=== PATIENT | female | born 1985 | race Caucasian/White ===

== ENCOUNTER 2016-02-20 10:50 | Outpatient (CLI) | payer MEDICAID ==
[~2016-02-20 10:50] MED LIST: NORMAL SALINE 250 ML IV PRN; NORMAL SALINE IV PRN; PERTUZUMAB 420 MG in NORMAL SALINE 250 ML IV PRN; TRASTUZUMAB IV PRN
[2016-02-20 11:22] VITALS: BP 110/73
== END 2016-02-20 13:12 | disposition home or self-care (01) ==
LOC: II 10:50 → 5TH 10:51 → II 13:12
PROVIDERS: ATTEND Specialist
PROC: 3E0430M Introduction of Antineoplastic, Monoclonal Antibody, into Central Vein, Percutaneous Approach (ICD-10-PCS; principal; 2016-02-20)
DX: Z51.11 Encounter for antineoplastic chemotherapy (principal); C50.919 Malignant neoplasm of unspecified site of unspecified female breast
CPT/HCPCS: 96413; 96417; J9355; J7050; J9306; 96360; 96374; 96415

== ENCOUNTER 2016-03-12 10:46 | Outpatient (CLI) | payer MEDICAID ==
[2016-03-12 11:01] VITALS: BP 116/71
[2016-03-12] MEDS ORDERED: NORMAL SALINE 250 ML IV PRN (11:03)
[2016-03-12] MEDS ORDERED: TRASTUZUMAB IV PRN (11:12)
[2016-03-12] MEDS ORDERED: NORMAL SALINE IV PRN (11:12)
[2016-03-12] MEDS ORDERED: PERTUZUMAB 420 MG in NORMAL SALINE 250 ML IV PRN (11:14)
== END 2016-03-12 14:19 | disposition home or self-care (01) ==
LOC: II 10:46 → 5TH 10:48 → II 14:19
PROVIDERS: ATTEND Specialist
PROC: 3E04305 Introduction of Other Antineoplastic into Central Vein, Percutaneous Approach (ICD-10-PCS; principal; 2016-03-12)
PROC: 3E04305 Introduction of Other Antineoplastic into Central Vein, Percutaneous Approach (ICD-10-PCS; 2016-03-12)
PROC: 3E0437Z Introduction of Electrolytic and Water Balance Substance into Central Vein, Percutaneous Approach (ICD-10-PCS; 2016-03-12)
DX: C50.919 Malignant neoplasm of unspecified site of unspecified female breast (principal); Z51.11 Encounter for antineoplastic chemotherapy
CPT/HCPCS: 96413; 96361; 96417; J9355; J7050; J9306; 96360; 96374; 96415

== ENCOUNTER 2016-04-02 10:34 | Outpatient (CLI) | payer MEDICAID ==
[2016-04-02 11:41] VITALS: BP 96/57
== END 2016-04-02 13:57 | disposition home or self-care (01) ==
LOC: II 10:34 → 5TH 10:35 → II 13:57
PROVIDERS: ATTEND Specialist
PROC: 3E0430M Introduction of Antineoplastic, Monoclonal Antibody, into Central Vein, Percutaneous Approach (ICD-10-PCS; principal; 2016-04-02)
PROC: 3E04305 Introduction of Other Antineoplastic into Central Vein, Percutaneous Approach (ICD-10-PCS; 2016-04-02)
PROC: 3E0437Z Introduction of Electrolytic and Water Balance Substance into Central Vein, Percutaneous Approach (ICD-10-PCS; 2016-04-02)
DX: C50.919 Malignant neoplasm of unspecified site of unspecified female breast (principal); Z51.11 Encounter for antineoplastic chemotherapy
CPT/HCPCS: 96413; 96361; 96417; J9355; J7050; J9306; 96375

== ENCOUNTER → 2016-04-07 | Outpatient (CLI) | payer MEDICAID ==
--- NOTE | 2016-04-07 20:47 | XCELERA REPORT ---
[address] [address] Transthoracic Echocardiogram Report Name: ROSE SANZ Age: 30 yrs Gender: Female : 1985 Patient Status: Outpatient Patient Location: Study Date: 04/07/2016 03:41 PM Height: 66 in Weight: 208 lb BSA: 2.0 m2 Reason For Study: ANTHRACYCLINE Z51.11 Ordering Physician: JUDITH COURTNEY Performed By: Nacho Whipple Interpretation Summary Difficult study due to L mastectomy and breast implant. Apical view poor and not all LV segments visualised to estimate LVEF, visually probably <60%, due to some segments hypokinetic eg IVS, inferoseptal wall, and basal LV segments not well visualised. Recommend rest MUGA study for serial quantification. MMode/2D Measurements \T\ Calculations RVDd: 3.0 cm LVIDd: 4.6 cm FS: 27.0 % Ao root diam: 3.3 cm IVSd: 0.77 cm LVIDs: 3.4 cm EDV(Teich): 98.0 ml LVPWd: 0.73 cm ESV(Teich): 46.4 ml Ao root area: 8.6 cm2 EF(Teich): 52.7 % LA dimension: 3.4 cm Doppler Measurements \T\ Calculations MV E max hilario: MV P1/2t max hilario: Ao V2 max: LV V1 max P.8 cm/sec 82.1 cm/sec 94.6 cm/sec 2.6 mmHg MV A max hilario: MV P1/2t: 50.0 msec Ao max PG: LV V1 max: 52.4 cm/sec 3.6 mmHg 81.0 cm/sec MV E/A: 1.6 MVA(P1/2t): 4.4 cm2 MV dec slope: 481.4 cm/sec2 MV dec time: 0.18 sec PA V2 max: TR max hilario: RAP systole: 87.7 cm/sec 186.5 cm/sec 10.0 mmHg PA max PG: TR max P.0 mmHg 3.1 mmHg RVSP(TR): 24.0 mmHg Left Ventricle The left ventricle is grossly normal size. The left ventricular ejection fraction is normal. LV EF is 60%. Doppler measurements suggest normal left ventricular diastolic function. There is inferoseptal wall moderate hypokinesis. There is no thrombus. Right Ventricle The right ventricle is not well visualized secondary to technical limitations. The right ventricular systolic function is normal. Atria The right atrium is normal in size. The left atrial size is normal. The interatrial septum is intact with no evidence for an atrial septal defect. Mitral Valve The mitral valve is normal in structure and function. There is no mitral annular calcification. There is no evidence of mitral valve prolapse. There is no mitral valve stenosis. There is no mitral regurgitation noted. Aortic Valve The aortic valve opens well. The aortic valve is not well visualized secondary to technical limitations. Cannot exclude aortic valvular vegetation. There is no aortic valve stenosis. No aortic regurgitation is present. Tricuspid Valve The tricuspid valve is not well visualized secondary to technical limitations. There is no tricuspid stenosis. Right ventricular systolic pressure is normal. Pulmonic Valve The pulmonic valve is not well visualized. There is no pulmonic valvular regurgitation. Great Vessels The aortic root is normal size. Effusions There is no pericardial effusion. I WMSI = 1.36 % Normal = 64 Segments Size X - Cannot 1 - Normal 2 - 3 - Akinetic4 - 1-2 small Interpret Hypokinetic Dyskinetic 3-5 moderate 5 - 6-14 large Aneurysmal 15-16 diffuse : JUDITH COURTNEY > Danyelle, Luis Miguel
== END ==
LOC: SP 15:15
PROVIDERS: ATTEND Specialist
DX: Z51.11 Encounter for antineoplastic chemotherapy (principal); Z85.3 Personal history of malignant neoplasm of breast; Z79.899 Other long term (current) drug therapy
CPT/HCPCS: 93306

== ENCOUNTER → 2016-04-09 | Outpatient (CLI) | payer MEDICAID | LOC: RAD 12:51 | PROVIDERS: ATTEND Specialist | DX: C50.919 Malignant neoplasm of unspecified site of unspecified female breast (principal) | CPT/HCPCS: 70460 ==

== ENCOUNTER 2016-04-30 11:56 | Outpatient (CLI) | payer SELFPAY ==
[2016-04-30 13:53] VITALS: BP 113/78
== END 2016-04-30 14:24 | disposition home or self-care (01) ==
LOC: II 11:56 → 5TH 11:58 → II 14:24
PROVIDERS: ATTEND Specialist
DX: Z51.11 Encounter for antineoplastic chemotherapy (principal); C50.919 Malignant neoplasm of unspecified site of unspecified female breast
CPT/HCPCS: 96413; 96361; 96417; J9355; J7050; J9306; 96360; 96415

== ENCOUNTER 2016-05-21 11:47 | Outpatient (CLI) | payer SELFPAY ==
[2016-05-21 13:07] VITALS: BP 107/73
== END 2016-05-21 15:30 | disposition home or self-care (01) ==
LOC: II 11:47 → 5TH 11:50 → II 15:30
PROVIDERS: ATTEND Internal Medicine
PROC: 3E0330M Introduction of Antineoplastic, Monoclonal Antibody, into Peripheral Vein, Percutaneous Approach (ICD-10-PCS; principal; 2016-05-21)
PROC: 3E0337Z Introduction of Electrolytic and Water Balance Substance into Peripheral Vein, Percutaneous Approach (ICD-10-PCS; 2016-05-21)
DX: C50.919 Malignant neoplasm of unspecified site of unspecified female breast (principal); Z51.11 Encounter for antineoplastic chemotherapy
CPT/HCPCS: 96413; 96361; J9355; J7050; J9306; 96375; 96415

== ENCOUNTER 2016-06-11 10:37 | Outpatient (CLI) | payer MEDICAID ==
[2016-06-11 11:03] VITALS: BP 106/75
[2016-06-11 11:13] LABS: ABSOLUTE EOSINOPHILS # (AUTO) 0.2 10^3/uL (0.0-0.6); ABSOLUTE LYMPHOCYTES (AUTO) 0.6 10^3/uL (0.5-4.7); ABSOLUTE MONOCYTES (AUTO) 0.4 10^3/uL (0.1-1.4); ABSOLUTE NEUT (AUTO) 3.2 10^3/uL (1.7-8.2); BASOPHILS % (AUTO) 0.9 % (0-2); EOSINOPHILS % (AUTO) 5.3 % (0-6); HEMATOCRIT 36.6 % (36.0-47.0); HEMOGLOBIN 12.2 g/dL (12.0-15.5); LYMPHOCYTES % (AUTO) 14.5 % (13-45); MEAN CORPUSCULAR HEMOGLOBIN 31.6 pg (27.0-33.4); MEAN CORPUSCULAR HGB CONC 33.4 g/dL (32.0-36.0); MEAN CORPUSCULAR VOLUME 95 fl (80-97); RED BLOOD COUNT 3.87 10^6/uL (3.72-5.28); RED CELL DISTRIBUTION WIDTH 13.3 % (11.5-14.0); SEGMENTED NEUTROPHILS % (AUTO) 71.3 % (42-78); WHITE BLOOD COUNT 4.5 10^3/uL (4.0-10.5)
== END 2016-06-11 13:00 | disposition home or self-care (01) ==
LOC: II 10:37 → 5TH 10:40 → II 13:00
PROVIDERS: ATTEND Specialist
PROC: 3E0430M Introduction of Antineoplastic, Monoclonal Antibody, into Central Vein, Percutaneous Approach (ICD-10-PCS; principal; 2016-06-11)
DX: Z51.11 Encounter for antineoplastic chemotherapy (principal); C50.919 Malignant neoplasm of unspecified site of unspecified female breast
CPT/HCPCS: 96413; 96415; 96376; 36415; 85025; J9355; J7050; J9306; 96417

== ENCOUNTER → 2016-06-14 | Outpatient (CLI) | payer SELFPAY | LOC: RAD 19:09 | PROVIDERS: ATTEND Specialist | DX: C50.919 Malignant neoplasm of unspecified site of unspecified female breast (principal) | CPT/HCPCS: 78815; A9552 ==

== ENCOUNTER → 2017-04-12 | Outpatient (CLI) | payer SELFPAY ==
--- NOTE | 2017-04-13 09:04 | RADIOLOGY REPORT (SQ) ---
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 TECHNIQUE: Left shoulder images acquired and stored on PACS. Multiplanar imaging to include fat sens itive sequences such as T1, water sensitive sequences such as FST2/STIR, cartilage sensitive sequence s such as FSPD/gradient-echo sequences. LIMITATIONS: None. FINDINGS: BONE MARROW AND CORTEX: No worrisome bone lesions or marrow replacement. No occult fractur es. JOINT OR BURSAL EFFUSION: No significant joint or bursal fluid. No suggestion of loose bodies. GLENO-HUMERAL ARTICULATION: Normal articulation. No subluxation. No cystic change. No osteophytes or cartilage loss. ACROMION AND AC JOINT: Type 2. No down-sloping or distal spur. Sub-acromial space maintained. No si gnificant AC joint arthropathy. ROTATOR CUFF AND INTERVAL: No significant tear or signal alteration. No cuff muscle atrophy. No rotator interval tear. No rotator interval thickening to suggest adhesive capsulitis. LABRUM AND BICEPS LABRAL COMPLEX: Intact. No labral tear. Intra-articular long-head biceps tendon n ormal. Distal biceps in normal location in bicipital groove. REMAINDER OF LABRUM AND IGHL : No gross tear or paralabral cyst formation. Labral evaluation is less than optimal without joint distention. No thickening of IGHL to suggest adhesive capsulitis. PERIARTICULAR AND ADJACENT SOFT TISSUES: No masses or abnormal nodes. OTHER: No other significant finding. IMPRESSION: NORMAL MRI OF THE SHOULDER. TECHNICAL DOCUMENTATION: JOB ID: [id number] [employer]- All Rights Reserved Reading location - IP/workstation name: [email or web address]
--- NOTE | 2017-04-13 13:03 | RADIOLOGY REPORT (SQ) ---
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 TECHNIQUE: Sagittal and Axial imaging includes T1, T2, STIR and gradient echo sequences. T1 post pierre olinium sequences. CONTRAST TYPE AND DOSE: 20 mL Multihance. RENAL FUNCTION: None required. The patient is less than 50 years old. LIMITATIONS: None. FINDINGS: ALIGNMENT: Normal. VERTEBRAE: Intact. BONE MARROW: Normal. No marrow replacement or reactive changes. DISCS: Desiccation multiple levels. HARDWARE: None in the spine. CORD AND BASE OF BRAIN: Normal in size and signal intensity. SOFT TISSUES: No soft tissue masses. C1-C2: No significant spinal stenosis. C2-C3: No significant spinal stenosis or exit foraminal stenosis. C3-C4: No significant spinal stenosis or exit foraminal stenosis. C4-C5: No significant spinal stenosis or exit foraminal stenosis. C5-C6: No significant spinal stenosis or exit foraminal stenosis. C6-C7: No significant spinal stenosis or exit foraminal stenosis. C7-T1: No significant spinal stenosis or exit foraminal stenosis. UPPER THORACIC: Incompletely imaged. No significant spinal stenosis or exit foraminal stenosis. ENHANCEMENT: No abnormal enhancement. OTHER: No other significant finding. IMPRESSION: No acute findings. COMMENT: None. TECHNICAL DOCUMENTATION: JOB ID: [id number] [employer]- All Rights Reserved Reading location - IP/workstation name: [facility]
== END ==
LOC: RAD 16:27
PROVIDERS: ATTEND Internal Medicine Hematology & Oncology
DX: G64 Other disorders of peripheral nervous system (principal); C50.919 Malignant neoplasm of unspecified site of unspecified female breast; M25.60 Stiffness of unspecified joint, not elsewhere classified
CPT/HCPCS: 73221; 72156; A9577

== ENCOUNTER → 2017-06-10 | Outpatient (CLI) | payer SELFPAY ==
--- NOTE | 2017-06-10 15:23 | RADIOLOGY REPORT (SQ) ---
EXAM DESCRIPTION: CT ABD/PELVIS WITH IV ONLY; CT CHEST WITH COMPLETED DATE/TIME: 06/10/2017 2:40 pm REASON FOR STUDY: BREAST CA (C50.919) C50.919 MALIGNANT NEOPLASM OF UNSP SITE OF UNSPECIFIED FEMAL COMPARISON: PET-CT 06/14/2016, 05/26/2015 CONTRAST TYPE AND DOSE: contrast/concentration: Isovue 370.00 mg/ml; Total Contrast Delivered: 100.0 ml; Total Saline Delivered: 72.0 ml RENAL FUNCTION: None required. The patient is less than 50 years old. TECHNIQUE: CT scan of the chest performed using helical scanning technique with dynamic intravenous contrast injection. Images reviewed with lung, soft tissue and bone windows. Reconstructed coronal a nd sagittal MPR images reviewed. All images stored on PACS. CT scan of the abdomen and pelvis performed with intravenous and without oral contrastusing helical s kim technique with dynamic intravenous contrast injection. Images reviewed with lung, soft tissu e and bone windows. Reconstructed coronal and sagittal MPR images reviewed. Delayed images for eval uation of the urinary system also acquired and evaluated. All images stored on PACS. All CT scanners at this facility use dose modulation, iterative reconstruction, and/or weight based d osing when appropriate to reduce radiation dose to as low as reasonably achievable (ALARA). [facility]: Dose Right [facility]: CareDose [facility]: Dose Right [facility]: Teradose 4D [facility]: Smart Technologies RADIATION DOSE: CT Rad equipment meets quality standard of care and radiation dose reduction techniq ues were employed. CTDIvol: 9.6 - 18.0 mGy. DLP: 2362 mGy-cm. . LIMITATIONS: None. FINDINGS: CHEST: LUNGS AND PLEURA: No opacities, nodules, masses. No pneumothorax. No effusions. HILAR AND MEDIASTINAL STRUCTURES: No identified masses or abnormal nodes. HEART AND VASCULAR STRUCTURES: No aneurysm or dissection. No central pulmonary emboli. No pericardi al effusion. HARDWARE: None. THYROID AND OTHER SOFT TISSUES: Post left skin sparing mastectomy and breast implant. BONES: No significant finding. OTHER: No other significant finding. ABDOMEN AND PELVIS: LIVER: Normal size. No masses. No dilated ducts. SPLEEN: Normal size. No focal lesions. PANCREAS: No masses. No significant calcifications. No adjacent inflammation or peripancreatic fluid collections. Pancreatic duct not dilated. GALLBLADDER: No identified stones by CT criteria. No inflammatory changes to suggest cholecystitis. ADRENAL GLANDS: No significant masses or asymmetry. RIGHT KIDNEY AND URETER: No solid masses. No significant calcification. No hydronephrosis or hydroure ter. LEFT KIDNEY AND URETER: No solid masses. No significant calcification. No hydronephrosis or hydrouret er. AORTA AND VESSELS: No aneurysm. No dissection. Renal arteries, SMA, celiac without stenosis. RETROPERITONEUM: No retroperitoneal adenopathy, hemorrhage or masses. BOWEL AND PERITONEAL CAVITY: No masses or inflammatory changes. No free fluid or peritoneal masses. APPENDIX: Normal. ABDOMINAL WALL: No masses. No hernias. PELVIS: No mass or free fluid. Normal bladder. Normal size uterus and ovaries. 3 cm right ovarian cyst. BONES: 1.8 cm sclerotic lesion in the left sacrum axial image 60. This is unchanged compared to both prior PET-CT exams, most likely a benign large bone island. OTHER: No other significant finding. IMPRESSION: No CT evidence of metastatic disease to the chest abdomen or pelvis TECHNICAL DOCUMENTATION: JOB ID: [id number] Quality ID # 436: Final reports with documentation of one or more dose reduction techniques (e.g., Au tomated exposure control, adjustment of the mA and/or kV according to patient size, use of iterative reconstruction technique) 2010 [employer]- All Rights Reserved Reading location - IP/workstation name: [email or web address]
== END ==
LOC: RAD 13:15
PROVIDERS: ATTEND Internal Medicine Hematology & Oncology
DX: C50.912 Malignant neoplasm of unspecified site of left female breast (principal); Z90.12 Acquired absence of left breast and nipple; Z98.82 Breast implant status
CPT/HCPCS: 71260; 74177

== ENCOUNTER → 2018-02-21 | Outpatient (CLI) | payer SELFPAY ==
--- NOTE | 2018-02-21 09:18 | RADIOLOGY REPORT (SQ) ---
EXAM DESCRIPTION: CT ABD/PELVIS WITH IV ONLY; CT CHEST WITH COMPLETED DATE/TIME: 02/21/2018 8:50 am REASON FOR STUDY: BREAST CA (C50.919) C50.919 MALIGNANT NEOPLASM OF UNSP SITE OF UNSPECIFIED FEMAL COMPARISON: CT chest abdomen pelvis 06/10/2017 PET-CT 06/14/2016, 05/26/2015 CONTRAST TYPE AND DOSE: contrast/concentration: Isovue 350.00 mg/ml; Total Contrast Delivered: 100.0 ml; Total Saline Delivered: 72.0 ml RENAL FUNCTION: Creatinine 0.45 TECHNIQUE: CT scan of the chest performed using helical scanning technique with dynamic intravenous contrast injection. Images reviewed with lung, soft tissue and bone windows. Reconstructed coronal a nd sagittal MPR images reviewed. All images stored on PACS. CT scan of the abdomen and pelvis performed with intravenous and without oral contrastusing helical s kim technique with dynamic intravenous contrast injection. Images reviewed with lung, soft tissu e and bone windows. Reconstructed coronal and sagittal MPR images reviewed. Delayed images for eval uation of the urinary system also acquired and evaluated. All images stored on PACS. All CT scanners at this facility use dose modulation, iterative reconstruction, and/or weight based d osing when appropriate to reduce radiation dose to as low as reasonably achievable (ALARA). [facility]: Dose Right [facility]: CareDose [facility]: Dose Right [facility]: Teradose 4D [facility]: [employer] RADIATION DOSE: CT Rad equipment meets quality standard of care and radiation dose reduction techniq ues were employed. CTDIvol: 10.4 - 19.0 mGy. DLP: 2481 mGy-cm. . LIMITATIONS: None. FINDINGS: CHEST: LUNGS AND PLEURA: A rind of soft tissue is present in the medial right upper lobe on axial images 22- 36 measuring about 7 x 2 cm on axial image 15. This is new compared to previous studies. This findi ng, along with a 6 mm ill-defined alveolar nodule in the right upper lobe is worrisome for tumor recu rrence. There is a amorphous soft tissue paralleling the bilateral upper lobe bronchi and vessels worrisome f or lymphangitic spread of tumor. No pleural effusions. No pneumothorax. HILAR AND MEDIASTINAL STRUCTURES: Soft tissue parallels the bilateral upper lobe bronchovascular bund les worrisome for lymphangitic spread of tumor. There is new mediastinal adenopathy as follows: 1.7 x 1.3 cm prevascular lymph node axial image 21 1.2 x 0.7 cm precarinal lymph node axial image 18 1.4 x 0.8 cm AP window lymph node axial image 20 HEART AND VASCULAR STRUCTURES: No aneurysm or dissection. No central pulmonary emboli. No pericardi al effusion. HARDWARE: Right-sided permanent central line tip superior vena cava. THYROID AND OTHER SOFT TISSUES: No masses. Post left mastectomy with breast implant. No axillary ad enopathy. . BONES: No significant finding. OTHER: No other significant finding. ABDOMEN AND PELVIS: LIVER: Normal size. No masses. No dilated ducts. SPLEEN: Normal size. No focal lesions. PANCREAS: No masses. No significant calcifications. No adjacent inflammation or peripancreatic fluid collections. Pancreatic duct not dilated. GALLBLADDER: No identified stones by CT criteria. No inflammatory changes to suggest cholecystitis. ADRENAL GLANDS: No significant masses or asymmetry. RIGHT KIDNEY AND URETER: No solid masses. No significant calcification. No hydronephrosis or hydroure ter. LEFT KIDNEY AND URETER: No solid masses. No significant calcification. No hydronephrosis or hydrouret er. AORTA AND VESSELS: No aneurysm. No dissection. Renal arteries, SMA, celiac without stenosis. RETROPERITONEUM: No retroperitoneal adenopathy, hemorrhage or masses. BOWEL AND PERITONEAL CAVITY: Small hiatal hernia. No masses or inflammatory changes. No free fluid o r peritoneal masses. APPENDIX: Normal. ABDOMINAL WALL: No masses. No hernias. PELVIS: No mass or free fluid. Normal bladder. Normal size female pelvic organs. Clips post tubal ligation BONES: Persistent dense bony sclerosis in the left sacral ala unchanged, may represent a large bone i sland represented a bony metastatic disease. OTHER: No other significant finding. IMPRESSION: Findings worrisome for lymphangitic spread of tumor along the bilateral anthony. Rind of n ew abnormal soft tissue in the medial right lung apex worrisome for recurrent tumor. Mediastinal max nopathy is now present. No CT evidence of metastatic disease to the abdomen or pelvis TECHNICAL DOCUMENTATION: JOB ID: [id number] Quality ID # 436: Final reports with documentation of one or more dose reduction techniques (e.g., Au tomated exposure control, adjustment of the mA and/or kV according to patient size, use of iterative reconstruction technique) 2010 [employer]- All Rights Reserved Reading location - IP/workstation name: [email or web address]
--- NOTE | 2018-02-21 13:09 | RADIOLOGY REPORT (SQ) ---
EXAM DESCRIPTION: NM WHOLE BODY BONE SCAN COMPLETED DATE/TIME: 02/21/2018 12:44 pm REASON FOR STUDY: BREAST CA (C50.919) C50.919 MALIGNANT NEOPLASM OF UNSP SITE OF UNSPECIFIED FEMAL COMPARISON: CT chest, abdomen, and pelvis 02/21/2018 RADIONUCLIDE AND DOSE: 20 millicuries Tc99m HDP. The route of agent administration: Intravenous. ADDITIONAL DRUGS AND DOSES: None. TECHNIQUE: Routine delayed images at 3 hours post radionuclide injection acquired of the bony skelet on including anterior and posterior whole-body projections and additional focused images as needed. LIMITATIONS: None. FINDINGS: BONES: Normal visualization without areas of photopenia or increased bony uptake of radiop harmaceutical. KIDNEYS: Symmetric excretion without obstruction. OTHER: No other significant finding. IMPRESSION: NORMAL BONE SCAN. COMMENT: Quality measure 147: Current bone scan is compared with any available plain radiographs, p rior bone scans, and CT/MRI. TECHNICAL DOCUMENTATION: JOB ID: [id number] [employer] All Rights Reserved Reading location - IP/workstation name: [email or web address]
== END ==
LOC: RAD 07:54
PROVIDERS: ATTEND Internal Medicine Hematology & Oncology
DX: C50.919 Malignant neoplasm of unspecified site of unspecified female breast (principal)
CPT/HCPCS: 78306; 71260; 74177; A9561; Q9969

== ENCOUNTER → 2018-04-04 | Outpatient (CLI) | payer SELFPAY ==
--- NOTE | 2018-04-04 11:32 | RADIOLOGY REPORT (SQ) ---
EXAM DESCRIPTION: CT CHEST WITH COMPLETED DATE/TIME: 04/04/2018 9:46 am REASON FOR STUDY: BREAST CA (C50.912), SOLITARY PULMONARY NODULE (R91.1) C50.912 MALIGNANT NEOPLASM OF UNSPECIFIED SITE OF LEFT FEMAL COMPARISON: 02/21/2018 TECHNIQUE: CT scan of the chest performed using helical scanning technique with dynamic intravenous contrast injection. Images reviewed with lung, soft tissue and bone windows. Reconstructed coronal and sagittal MPR and MIP images reviewed. All images stored on PACS. All CT scanners at this facility use dose modulation, iterative reconstruction, and/or weight based d osing when appropriate to reduce radiation dose to as low as reasonably achievable (ALARA). [facility]: Dose Right [facility]: CareDose [facility]: Dose Right [facility]: Teradose 4D [facility]: [employer] CONTRAST TYPE AND DOSE: contrast/concentration: Isovue 350.00 mg/ml; Total Contrast Delivered: 80.0 ml; Total Saline Delivered: 55.0 ml RENAL FUNCTION: Referred to the x ray technologist notes. RADIATION DOSE: CT Rad equipment meets quality standard of care and radiation dose reduction techniq ues were employed. CTDIvol: 11.3 mGy. DLP: 400 mGy-cm. . LIMITATIONS: None. FINDINGS: LUNGS AND PLEURA: Persistent streaky opacification extending from the anthony in the upper lo bes predominantly. Confluent soft tissue density adjacent to the mediastinum on the right. This is stable. Nodular density suggested on the earlier study in the right upper lobe is not identified on this study. HILAR AND MEDIASTINAL STRUCTURES: Mediastinal adenopathy persists. HEART AND VASCULAR STRUCTURES: Shallow pericardial effusion. No aneurysm. HARDWARE: None in the chest. UPPER ABDOMEN: No significant findings. Limited exam. THYROID AND OTHER SOFT TISSUES: No masses. No adenopathy. BONES: No significant finding. OTHER: No other significant finding. IMPRESSION: 1. Stable streaky opacification extending from the anthony suggestive of lymphangiitic spr ead of tumor. Stable. 2. Stable paramediastinal soft tissue density in the right upper lobe. 3. 6 mm right upper lobe nodule seen on the earlier study is not seen currently. 4. Persistent mediastinal adenopathy. TECHNICAL DOCUMENTATION: JOB ID: [id number] Quality ID # [id number]: Final reports with documentation of one or more dose reduction techniques (e.g., Au tomated exposure control, adjustment of the mA and/or kV according to patient size, use of iterative reconstruction technique) 2010 [employer]- All Rights Reserved Reading location - IP/workstation name: [email or web address]
== END ==
LOC: RAD 09:22
PROVIDERS: ATTEND Internal Medicine Hematology & Oncology
DX: C50.912 Malignant neoplasm of unspecified site of left female breast (principal); R91.1 Solitary pulmonary nodule
CPT/HCPCS: 71260

== ENCOUNTER → 2018-04-25 | Outpatient (CLI) | payer SELFPAY ==
--- NOTE | 2018-04-25 18:30 | RADIOLOGY REPORT (SQ) ---
EXAM DESCRIPTION: MRI HEAD COMBO COMPLETED DATE/TIME: 04/25/2018 5:30 pm REASON FOR STUDY: C50.919 MALIGNANT NEOPLASM OF UNSP SITE OF UNSPECIFIED FEMALE BREAST C50.919 CHARISSA GNANT NEOPLASM OF UNSP SITE OF UNSPECIFIED FEMAL COMPARISON: None. TECHNIQUE: Multiplanar imaging includes noncontrasted T1, T2, FLAIR, diffusion with ADC map and post gadolinium contrast T1 sequences. Images stored on PACS. CONTRAST TYPE AND DOSE: 15 mL Dotarem. RENAL FUNCTION: Not indicated. ACR Type II contrast agent associated with few, if any, unconfounded cases of NSF LIMITATIONS: None. FINDINGS: ANATOMY: No anomalies. Normal vascular flow voids. Pituitary fossa normal. CSF SPACES: Normal in size and contour. No hemorrhage. CEREBRUM: There multiple small enhancing lesions in the brain. These are more numerous on the left s dennis. There is some associated edema with these. POSTERIOR FOSSA: Multiple small enhancing lesions are present in the cerebellum. DIFFUSION IMAGING: Negative for acute or subacute infarction. ORBITS: No masses. Globes normal. PARANASAL SINUSES: Right maxillary sinus disease. OTHER: No other significant finding. 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 Right maxillary si nus disease. EVIDENCE OF ACUTE STROKE: NO. TECHNICAL DOCUMENTATION: JOB ID: [id number] [employer]- All Rights Reserved Reading location - IP/workstation name: [email or web address]
== END ==
LOC: RAD 16:53
PROVIDERS: ATTEND Internal Medicine Hematology & Oncology
DX: C50.919 Malignant neoplasm of unspecified site of unspecified female breast (principal)
CPT/HCPCS: 70553; A9576

== ENCOUNTER → 2018-05-20 | Outpatient (CLI) | payer SELFPAY ==
--- NOTE | 2018-05-20 14:40 | RADIOLOGY REPORT (SQ) ---
EXAM DESCRIPTION: NM MUGA REST COMPLETED DATE/TIME: 05/20/2018 12:51 pm REASON FOR STUDY: ENCTR FOR F/U EXAM AFTER COMPLETED TX FOR MALIGNANT NEOPLASM (Z08) Z08 ENCNTR FOR FOLLOW-UP EXAM AFTER TRTMT FOR MALIGNANT NEOP Z51.11 ENCOUNTER FOR ANTINEOPLASTIC CHEMOTHERAPY C50. 919 MALIGNANT NEOPLASM OF UNSP SITE OF UNSPECIFIED FEMAL COMPARISON: None. RADIONUCLIDE AND DOSE: 26.5 mCi technetium 99m labeled red blood cells The route of agent administration: Intravenous TECHNIQUE: Following administration of the radionuclide, gated images of the heart are obtained in t hree projections. Left ventricular functional analysis performed. LIMITATIONS: None. FINDINGS: LEFT VENTRICULAR FUNCTION: EJECTION FRACTION: 72%. END-DIASTOLIC VOLUME: 79 mL. END-SYSTOLIC VOLUME: 25 mL. WALL MOTION: No focal wall motion abnormalities. OTHER: No other significant finding. IMPRESSION: NORMAL CARDIAC MUGA STUDY. NORMAL LEFT VENTRICULAR FUNCTION WITH VALUES ABOVE. TECHNICAL DOCUMENTATION: JOB ID: [id number] [employer]- All Rights Reserved Reading location - IP/workstation name: [email or web address]
== END ==
LOC: RAD 11:04
PROVIDERS: ATTEND Internal Medicine Hematology & Oncology
DX: Z51.11 Encounter for antineoplastic chemotherapy (principal); C50.919 Malignant neoplasm of unspecified site of unspecified female breast; C79.31 Secondary malignant neoplasm of brain
CPT/HCPCS: 78472; A9560; Q9969

== ENCOUNTER → 2018-05-23 | Outpatient (CLI) | payer SELFPAY ==
--- NOTE | 2018-05-23 12:00 | RADIOLOGY REPORT (SQ) ---
EXAM DESCRIPTION: CT ABD/PELVIS WITH IV ORAL COMPLETED DATE/TIME: 05/23/2018 11:10 am REASON FOR STUDY: BREAST CA C50.912 MALIGNANT NEOPLASM OF UNSPECIFIED SITE OF LEFT FEMAL COMPARISON: 02/11/2018 CT chest examination dated 04/04/2018 TECHNIQUE: CT scan of the abdomen and pelvis performed using helical scanning technique with dynamic intravenous contrast injection. No oral contrast. Images reviewed with lung, soft tissue, and bone windows. Reconstructed coronal and sagittal MPR images reviewed. Delayed images for evaluation of the urinary system also acquired. All images stored on PACS. All CT scanners at this facility use dose modulation, iterative reconstruction, and/or weight based d osing when appropriate to reduce radiation dose to as low as reasonably achievable (ALARA). [facility]: Dose Right [facility]: CareDose [facility]: Dose Right [facility]: Teradose 4D [facility]: Attender CONTRAST TYPE AND DOSE: contrast/concentration: Isovue 350.00 mg/ml; Total Contrast Delivered: 100.0 ml; Total Saline Delivered: 72.0 ml RENAL FUNCTION: None required. The patient is less than 50 years old. RADIATION DOSE: CT Rad equipment meets quality standard of care and radiation dose reduction techniq ues were employed. CTDIvol: 9.1 - 15.8 mGy. DLP: 2024 mGy-cm.. LIMITATIONS: None. FINDINGS: LOWER CHEST: Please see CT chest report. LIVER: The barely discernible hypoattenuated lesion in the periphery of the right hepatic lobe is in creased in size and measures 1.3 cm x 1.3 cm, axial image 16, series 3. Several new slightly enhanci ng hypoattenuated hepatic lesions, one of the largest measures approximately 2.2 cm x 1.6 cm in AP di ameter. Considerations for these findings include metastatic disease. No dilated ducts. The hepati c and portal veins are patent. SPLEEN: Normal size. No focal lesions. PANCREAS: No masses. No significant calcifications. No adjacent inflammation or peripancreatic fluid collections. Pancreatic duct not dilated. GALLBLADDER: No identified stones by CT criteria. No inflammatory changes to suggest cholecystitis. ADRENAL GLANDS: No significant masses or asymmetry. RIGHT KIDNEY AND URETER: No solid masses. No significant calcifications. No hydronephrosis or hyd roureter. LEFT KIDNEY AND URETER: No solid masses. No significant calcifications. No hydronephrosis or hydr oureter. AORTA AND VESSELS: No aneurysm. No dissection. Renal arteries, SMA, celiac without stenosis. RETROPERITONEUM: No retroperitoneal adenopathy, hemorrhage or masses. BOWEL AND PERITONEAL CAVITY: Constipation. No masses or inflammatory changes. No free fluid or ana toneal masses. APPENDIX: Normal. PELVIS: The uterus is prominent in size with hypoattenuated masses and calcification noted. Conside rations for these findings include fibroid uterus. There are hypoattenuated structures in the right adnexal region, some of which have increased in size. Some of the largest measure 2.4 cm x 2.0 cm. Considerations for these findings include right ovarian cysts/follicles. Decrease in size left ovari an follicles/cysts. Tubal ligation clips are again noted. No free fluid. ABDOMINAL WALL: No masses. No hernias. BONES: The osseous structures are stable in appearance. The sclerotic focus in the left sacral alae is stable in appearance. OTHER: Small stable hiatal hernia. IMPRESSION: Small stable hiatal hernia. 1. There are hypoattenuated slightly enhancing hepatic masses. Considerations for these findings in clude metastatic disease. 2. Fibroid uterus suggested. There are hypoattenuated structures in the right adnexal region, some of which have increased in size. These findings may be on the bases ovarian follicles/cysts. Correl ation suggested. 3. Decreasing left ovarian follicles/cysts. 4. Additional findings as above. TECHNICAL DOCUMENTATION: JOB ID: [id number] Quality ID # [id number]: Final reports with documentation of one or more dose reduction techniques (e.g., Au tomated exposure control, adjustment of the mA and/or kV according to patient size, use of iterative reconstruction technique) 2010 [employer]- All Rights Reserved Reading location - IP/workstation name: [email or web address]
--- NOTE | 2018-05-23 14:37 | RADIOLOGY REPORT (SQ) ---
EXAM DESCRIPTION: CT CHEST WITH COMPLETED DATE/TIME: 05/23/2018 11:11 am REASON FOR STUDY: BREAST CA C50.912 MALIGNANT NEOPLASM OF UNSPECIFIED SITE OF LEFT FEMAL COMPARISON: None. TECHNIQUE: CT scan of the chest performed using helical scanning technique with dynamic intravenous contrast injection. Images reviewed with lung, soft tissue and bone windows. Reconstructed coronal and sagittal MPR and MIP images reviewed. All images stored on PACS. All CT scanners at this facility use dose modulation, iterative reconstruction, and/or weight based d osing when appropriate to reduce radiation dose to as low as reasonably achievable (ALARA). [facility]: Dose Right [facility]: CareDose [facility]: Dose Right [facility]: Teradose 4D [facility]: [employer]ap CONTRAST TYPE AND DOSE: 100 mL Omnipaque 350- low osmolar. RENAL FUNCTION: None required. The patient is less than 50 years old. RADIATION DOSE: . LIMITATIONS: None. FINDINGS: LUNGS AND PLEURA: Persistent paramediastinal thickening on the right. Persistent streaky changes extending from the anthony into the upper lobes. There is a 3 mm subpleural nodule in the right lung on image 47. This is stable. HILAR AND MEDIASTINAL STRUCTURES: Persistent mediastinal adenopathy. HEART AND VASCULAR STRUCTURES: Persistent shallow pericardial effusion. No aneurysm. HARDWARE: None in the chest. UPPER ABDOMEN: See separate report of the CT of the abdomen. THYROID AND OTHER SOFT TISSUES: No masses. No adenopathy. BONES: No significant finding. OTHER: No other significant finding. IMPRESSION: Stable pulmonary and mediastinal findings in the chest. TECHNICAL DOCUMENTATION: JOB ID: [id number] Quality ID # [id number]: Final reports with documentation of one or more dose reduction techniques (e.g., Au tomated exposure control, adjustment of the mA and/or kV according to patient size, use of iterative reconstruction technique) 2010 [employer]- All Rights Reserved Reading location - IP/workstation name: [email or web address]
[2018-05-23 16:33] LABS: ALANINE AMINOTRANSFERASE 33 U/L (9-52); ALBUMIN 3.4 g/dL (3.5-5.0); ALKALINE PHOSPHATASE 62 U/L (38-126); ANION GAP 6 (5-19); ASPARTATE AMINO TRANSFERASE 31 U/L (14-36); BILIRUBIN,DIRECT 0.2 mg/dL (0.0-0.4); BILIRUBIN,TOTAL 0.7 mg/dL (0.2-1.3); BLOOD UREA NITROGEN 17 mg/dL (7-20); CALCIUM 9.2 mg/dL (8.4-10.2); CARBON DIOXIDE 26 mmol/L (22-30); CHLORIDE 103 mmol/L (98-107); GLUCOSE 89 mg/dL (75-110); POTASSIUM 3.8 mmol/L (3.6-5.0); SODIUM 134.6 mmol/L (137-145); TOTAL PROTEIN 6.1 g/dL (6.3-8.2)
== END ==
LOC: RAD 09:50
PROVIDERS: ATTEND Internal Medicine Hematology & Oncology
DX: C50.912 Malignant neoplasm of unspecified site of left female breast (principal); C79.31 Secondary malignant neoplasm of brain; K44.9 Diaphragmatic hernia without obstruction or gangrene
CPT/HCPCS: 36415; 71260; 74177; 80053

== ENCOUNTER 2018-05-24 08:35 | Outpatient (CLI) | payer SELFPAY ==
[~2018-05-24 08:35] MED LIST changes: +DEXAMETHASONE SOD PHOSPHATE 20 MG in NORMAL SALINE 50 ML IV PRN; +DIPHENHYDRAMINE 50 MG in NS 50 ML IV PRN; +DOCETAXEL IV PRN; +FAMOTIDINE 20 MG in NS 50 ML IV PRN; +NORMAL SALINE 250 ML @ KVO IV PRN; -NORMAL SALINE 250 ML IV PRN; -PERTUZUMAB 420 MG in NORMAL SALINE 250 ML IV PRN; +PERTUZUMAB 840 MG in NORMAL SALINE 250 ML IV PRN
[2018-05-24 09:58] VITALS: BP 125/71
== END 2018-05-24 15:18 | disposition home or self-care (01) ==
LOC: II 08:35 → 5TH 08:42 → II 15:18
PROVIDERS: ATTEND Internal Medicine Hematology & Oncology
PROC: 3E0430M Introduction of Antineoplastic, Monoclonal Antibody, into Central Vein, Percutaneous Approach (ICD-10-PCS; principal; 2018-05-24)
PROC: 3E0433Z Introduction of Anti-inflammatory into Central Vein, Percutaneous Approach (ICD-10-PCS; 2018-05-24)
PROC: 3E043GC Introduction of Other Therapeutic Substance into Central Vein, Percutaneous Approach (ICD-10-PCS; 2018-05-24)
DX: Z51.11 Encounter for antineoplastic chemotherapy (principal); C50.919 Malignant neoplasm of unspecified site of unspecified female breast; C79.31 Secondary malignant neoplasm of brain
CPT/HCPCS: 96413; 96415; 96367; 96374; 96360; 96417; J1200; J7050; S0028; J1100; J9306; J9355

== ENCOUNTER 2018-06-14 09:45 | Outpatient (CLI) | payer MEDICAID ==
[~2018-06-14 09:45] MED LIST changes: -DIPHENHYDRAMINE 50 MG in NS 50 ML IV PRN; +DIPHENHYDRAMINE HCL 50 MG in NORMAL SALINE 50 ML INJ PRN; +DOCETAXEL 155 MG in NORMAL SALINE 250 ML IV PRN; -DOCETAXEL IV PRN; -FAMOTIDINE 20 MG in NS 50 ML IV PRN; +FAMOTIDINE/PF 20 MG in NORMAL SALINE 50 ML IV PRN; -NORMAL SALINE 250 ML @ KVO IV PRN; +NORMAL SALINE 250 ML IV PRN; +PERTUZUMAB 420 MG in NORMAL SALINE 250 ML IV PRN; -PERTUZUMAB 840 MG in NORMAL SALINE 250 ML IV PRN
[2018-06-14 10:12] VITALS: BP 106/73
[2018-06-14 12:58] LABS: ALANINE AMINOTRANSFERASE 18 U/L (9-52); ALBUMIN 3.6 g/dL (3.5-5.0); ALKALINE PHOSPHATASE 75 U/L (38-126); ANION GAP 10 (5-19); ASPARTATE AMINO TRANSFERASE 18 U/L (14-36); BILIRUBIN,DIRECT 0.2 mg/dL (0.0-0.4); BILIRUBIN,TOTAL 0.4 mg/dL (0.2-1.3); BLOOD UREA NITROGEN 20 mg/dL (7-20); CALCIUM 9.6 mg/dL (8.4-10.2); CARBON DIOXIDE 24 mmol/L (22-30); CHLORIDE 108 mmol/L (98-107); GLUCOSE 87 mg/dL (75-110); SODIUM 142.2 mmol/L (137-145); TOTAL PROTEIN 6.3 g/dL (6.3-8.2)
== END 2018-06-14 15:05 | disposition home or self-care (01) ==
LOC: II 09:45 → 5TH 09:51 → II 15:05
PROVIDERS: ATTEND Internal Medicine Hematology & Oncology
PROC: 3E0430M Introduction of Antineoplastic, Monoclonal Antibody, into Central Vein, Percutaneous Approach (ICD-10-PCS; principal; 2018-06-14)
PROC: 3E0433Z Introduction of Anti-inflammatory into Central Vein, Percutaneous Approach (ICD-10-PCS; 2018-06-14)
PROC: 3E043GC Introduction of Other Therapeutic Substance into Central Vein, Percutaneous Approach (ICD-10-PCS; 2018-06-14)
DX: Z51.11 Encounter for antineoplastic chemotherapy (principal); C50.919 Malignant neoplasm of unspecified site of unspecified female breast; C79.31 Secondary malignant neoplasm of brain; Z90.12 Acquired absence of left breast and nipple
CPT/HCPCS: 36415; 80053; 96413; 96415; 96365; 96366; J1200; J7050; S0028; J1100; J1642; J9306; J9355; 96367; 96375; 96417

== ENCOUNTER → 2018-06-20 | Outpatient (CLI) | payer MEDICAID ==
--- NOTE | 2018-06-20 12:07 | RADIOLOGY REPORT (SQ) ---
EXAM DESCRIPTION: MRI HEAD COMBO COMPLETED DATE/TIME: 06/20/2018 10:30 am REASON FOR STUDY: SECONDARY MALIGNANT NEOPLASM OF BRAIN C79.31 SECONDARY MALIGNANT NEOPLASM OF BRAI N COMPARISON: 04/25/2018 TECHNIQUE: Multiplanar imaging includes noncontrasted T1, T2, FLAIR, diffusion with ADC map and post gadolinium contrast T1 sequences. Images stored on PACS. CONTRAST TYPE AND DOSE: 15 mL Dotarem. RENAL FUNCTION: Not indicated. ACR Type II contrast agent associated with few, if any, unconfounded cases of NSF LIMITATIONS: None. FINDINGS: ANATOMY: No anomalies. Normal vascular flow voids. Pituitary fossa normal. CSF SPACES: Normal in size and contour. No hemorrhage. CEREBRUM: Interval decrease in size and number of enhancing intra-axial lesions. Left frontal lobe l esion 5 mm, previously 14 mm. No new lesions. No hemorrhage. No significant edema. POSTERIOR FOSSA: Interval decrease in size and number of enhancing intra-axial lesions in the cerebel lum. No new lesions. DIFFUSION IMAGING: Negative for acute or subacute infarction. ORBITS: No masses. Globes normal. PARANASAL SINUSES: Chronic sinus disease. OTHER: No other significant finding. IMPRESSION: Favorable response to therapy for cerebral and cerebellar metastatic lesions. EVIDENCE OF ACUTE STROKE: NO. TECHNICAL DOCUMENTATION: JOB ID: [id number] [employer]- All Rights Reserved Reading location - IP/workstation name: [email or web address]
== END ==
LOC: RAD 09:35
PROVIDERS: ATTEND Radiology Radiation Oncology
DX: C79.31 Secondary malignant neoplasm of brain (principal)
CPT/HCPCS: 70553; A9576

== ENCOUNTER → 2018-06-28 | Outpatient (CLI) | payer MEDICAID ==
--- NOTE | 2018-06-28 18:59 | RADIOLOGY REPORT (SQ) ---
EXAM DESCRIPTION: CHEST 2 VIEWS COMPLETED DATE/TIME: 06/28/2018 4:43 pm REASON FOR STUDY: (R05) COUGH COMPARISON: None. EXAM PARAMETERS: NUMBER OF VIEWS: two views TECHNIQUE: Digital Frontal and Lateral radiographic views of the chest acquired. RADIATION DOSE: NA LIMITATIONS: none FINDINGS: LUNGS AND PLEURA: There is ill-defined opacification the left base. The left heart border is indistinct. MEDIASTINUM AND HILAR STRUCTURES: No masses or contour abnormalities. HEART AND VASCULAR STRUCTURES: Heart normal size. No evidence for failure. BONES: No acute findings. HARDWARE: None in the chest. OTHER: No other significant finding. IMPRESSION: Cannot exclude a lingular pneumonia. TECHNICAL DOCUMENTATION: JOB ID: [id number] [employer]- All Rights Reserved Reading location - IP/workstation name: [email or web address]
== END ==
LOC: RAD 16:09
PROVIDERS: ATTEND Internal Medicine Hematology & Oncology
DX: R05 Cough (principal); C50.919 Malignant neoplasm of unspecified site of unspecified female breast
CPT/HCPCS: 71046

== ENCOUNTER 2018-07-12 09:53 | Outpatient (CLI) | payer MEDICAID ==
[~2018-07-12 09:53] MED LIST changes: -DIPHENHYDRAMINE HCL 50 MG in NORMAL SALINE 50 ML INJ PRN; +DIPHENHYDRAMINE HCL 50 MG in NORMAL SALINE 50 ML IV PRN; -DOCETAXEL 155 MG in NORMAL SALINE 250 ML IV PRN; +DOCETAXEL IV PRN
[2018-07-12 12:24] VITALS: BP 158/72
== END 2018-07-12 15:31 | disposition home or self-care (01) ==
LOC: II 09:53 → 5TH 09:54 → II 15:31
PROVIDERS: ATTEND Internal Medicine
PROC: 3E0430M Introduction of Antineoplastic, Monoclonal Antibody, into Central Vein, Percutaneous Approach (ICD-10-PCS; principal; 2018-07-12)
PROC: 3E0433Z Introduction of Anti-inflammatory into Central Vein, Percutaneous Approach (ICD-10-PCS; 2018-07-12)
PROC: 3E043GC Introduction of Other Therapeutic Substance into Central Vein, Percutaneous Approach (ICD-10-PCS; 2018-07-12)
DX: Z51.11 Encounter for antineoplastic chemotherapy (principal); C50.919 Malignant neoplasm of unspecified site of unspecified female breast; C79.31 Secondary malignant neoplasm of brain; C78.02 Secondary malignant neoplasm of left lung; Z90.12 Acquired absence of left breast and nipple
CPT/HCPCS: 96413; 96415; 96367; 96374; 96360; 96417; J1200; J7050; S0028; J1100; J1642; J9306; J9355; J9171

== ENCOUNTER 2018-09-20 09:50 | Outpatient (CLI) | payer MEDICAID ==
[~2018-09-20 09:50] MED LIST changes: +DIPHENHYDRAMINE 50 MG in NS 50 ML IV PRN; -DIPHENHYDRAMINE HCL 50 MG in NORMAL SALINE 50 ML IV PRN; +FAMOTIDINE 20 MG in NS 50 ML IV PRN; -FAMOTIDINE/PF 20 MG in NORMAL SALINE 50 ML IV PRN; +NORMAL SALINE 250 ML @ KVO IV PRN; -NORMAL SALINE 250 ML IV PRN
[2018-09-20 10:11] VITALS: BP 105/69
== END 2018-09-20 14:47 | disposition home or self-care (01) ==
LOC: II 09:50 → 5TH 10:32 → II 14:47
PROVIDERS: ATTEND Internal Medicine
PROC: 3E04305 Introduction of Other Antineoplastic into Central Vein, Percutaneous Approach (ICD-10-PCS; principal; 2018-09-20)
PROC: 3E0430M Introduction of Antineoplastic, Monoclonal Antibody, into Central Vein, Percutaneous Approach (ICD-10-PCS; 2018-09-20)
PROC: 3E0433Z Introduction of Anti-inflammatory into Central Vein, Percutaneous Approach (ICD-10-PCS; 2018-09-20)
PROC: 3E043GC Introduction of Other Therapeutic Substance into Central Vein, Percutaneous Approach (ICD-10-PCS; 2018-09-20)
DX: Z51.11 Encounter for antineoplastic chemotherapy (principal); C50.919 Malignant neoplasm of unspecified site of unspecified female breast; C79.31 Secondary malignant neoplasm of brain
CPT/HCPCS: 96413; 96367; 96417; J1200; J7050; S0028; J1100; J1642; J9306; J9355; J9171; 96366; 96415

== ENCOUNTER → 2018-10-07 | Outpatient (CLI) | payer MEDICAID ==
--- NOTE | 2018-10-07 11:55 | RADIOLOGY REPORT (SQ) ---
EXAM DESCRIPTION: MRI HEAD COMBO COMPLETED DATE/TIME: 10/07/2018 11:24 am REASON FOR STUDY: BREAST CA (C50.919) C50.919 MALIGNANT NEOPLASM OF UNSP SITE OF UNSPECIFIED FEMAL COMPARISON: 06/20/2018 TECHNIQUE: Multiplanar imaging includes noncontrasted T1, T2, FLAIR, diffusion with ADC map and post gadolinium contrast T1 sequences. Images stored on PACS. CONTRAST TYPE AND DOSE: 10 mL Dotarem. RENAL FUNCTION: Not indicated. ACR Type II contrast agent associated with few, if any, unconfounded cases of NSF LIMITATIONS: None. FINDINGS: ANATOMY: No anomalies. Normal vascular flow voids. Pituitary fossa normal. CSF SPACES: Normal in size and contour. No hemorrhage. CEREBRUM: Sulci and gyri normal in size and contour. Normal white matter signal on FLAIR imaging. No evidence of hemorrhage, mass, or extraaxial fluid collection. Small area of enhancement remains in t he high left posterior frontal lobe this measures 4.2 mm in greatest diameter. Previously was 4.7. No new lesions. . POSTERIOR FOSSA: No signal alteration. No hemorrhage. No edema, masses, or mass effect. Internal fitz tory canals, cerebellopontine angles, mastoids normal. No enhancing lesions. No abnormal enhancement post contrast. DIFFUSION IMAGING: Negative for acute or subacute infarction. ORBITS: No masses. Globes normal. PARANASAL SINUSES: No fluid levels. Mucosa normal. OTHER: No other significant finding. IMPRESSION: Small residual area of enhancement left posterior frontal lobe. This is best demonstrat ed on series 10, image 21. It measures 4.2 mm in diameter. No new findings. EVIDENCE OF ACUTE STROKE: NO. TECHNICAL DOCUMENTATION: JOB ID: [id number] [employer]- All Rights Reserved Reading location - IP/workstation name: CLIENT [email or web address]
--- NOTE | 2018-10-07 12:12 | RADIOLOGY REPORT (SQ) ---
EXAM DESCRIPTION: CT CHEST WITH; CT ABD/PELVIS WITH IV ONLY COMPLETED DATE/TIME: 10/07/2018 11:23 am REASON FOR STUDY: BREAST CA (C50.919) C50.919 MALIGNANT NEOPLASM OF UNSP SITE OF UNSPECIFIED FEMAL CONTRAST TYPE AND DOSE: contrast/concentration: Isovue 350.00 mg/ml; Total Contrast Delivered: 96.0 ml; Total Saline Delivered: 71.0 ml RENAL FUNCTION: None required. The patient is less than 50 years old. COMPARISON: 05/23/2018, 04/04/2018 02/21/2018 TECHNIQUE: CT scan of the chest performed using helical scanning technique with dynamic intravenous contrast injection. Images reviewed with lung, soft tissue and bone windows. Reconstructed coronal a nd sagittal MPR images reviewed. All images stored on PACS. All CT scanners at this facility use dose modulation, iterative reconstruction, and/or weight based d osing when appropriate to reduce radiation dose to as low as reasonably achievable (ALARA). [facility]: Dose Right [facility]: CareDose [facility]: Dose Right [facility]: Teradose 4D [facility]: Staples RADIATION DOSE: CT Rad equipment meets quality standard of care and radiation dose reduction techniq ues were employed. CTDIvol: 6.6 - 9.3 mGy. DLP: 1258 mGy-cm. . LIMITATIONS: None. FINDINGS: AXILLAE: Small stable benign appearing right axillary lymph nodes. CHEST WALL: No masses. No subcutaneous air. LUNGS: Persistent thickening of the soft tissue surrounding the right and left mainstem bronchi and p roximal central bronchi. This remains suspicious for lymphangitic spread of carcinoma. Compared to prior study there has been mild improvement. There are small ground-glass opacities now present the periphery of the right upper lobe new from prior study. There is a small right effusion. Focal nodu le demonstrated on image 97 of series 6 most likely represents focal airspace disease. Small previou sly described subpleural nodule is less apparent on today's study. PLEURA: Small right effusion new from prior exam. THYROID: No masses or significant asymmetry. HILAR AND MEDIASTINAL STRUCTURES: Persistent adenopathy in the AP window and prevascular space. Pers istent mild hilar adenopathy slightly improved from prior study. AORTA AND GREAT VESSELS: No aneurysm. No dissection. PULMONARY ARTERIES: No identified pulmonary emboli. Study not optimized for the pulmonary arteries. HEART: Small pericardial effusion stable. HARDWARE AND LIFELINES: None. BONES: New focal sclerotic lesion in the superior aspect of T3 suspicious for metastatic disease. OTHER: No other significant finding. IMPRESSION: 1. Soft tissue thickening around the central airways has slightly improved from prior s tudy. This remains consistent with interstitial spread of carcinoma. There are new areas of ground- glass opacity in the periphery of the right upper lobe. These are best demonstrated on series 6, gloria ge 32 and 33. 2. Adenopathy in the mediastinum is slightly improved. 3. Single area of sclerosis in the posterosuperior aspect of L3 this is deaf unchanged appearance wh en compared to prior study in metastatic disease cannot be excluded. COMPARISON: None. RADIATION DOSE: CT Rad equipment meets quality standard of care and radiation dose reduction techniq ues were employed. CTDIvol: 6.6 - 9.3 mGy. DLP: 1258 mGy-cm. mGy. TECHNIQUE: CT scan of the abdomen and pelvis performed with intravenous and oral contrast using sally bisi scanning technique with dynamic intravenous contrast injection. Images reviewed with lung, soft tissue and bone windows. Reconstructed coronal and sagittal MPR images reviewed. Delayed images for evaluation of the urinary system also acquired and evaluated. All images stored on PACS. All CT scanners at this facility use dose modulation, iterative reconstruction, and/or weight based d osing when appropriate to reduce radiation dose to as low as reasonably achievable (ALARA). [facility]: Dose Right [facility]: SureCare [facility]: Dose Right [facility]: Teradose 4D [facility]: Staples FINDINGS: LIVER: Previously described hepatic lesions are both smaller in size. These are barely di scernible on today's exam. These both measure under 1 cm in greatest diameter. SPLEEN: Normal size. No focal lesions. PANCREAS: No masses. No significant calcifications. No adjacent inflammation or peripancreatic flui d collections. Pancreatic duct not dilated. GALLBLADDER: No identified stones by CT criteria. No inflammatory changes to suggest cholecystitis. ADRENAL GLANDS: No significant masses or asymmetry. RIGHT KIDNEY AND URETER: No solid masses. No significant calcifications. No hydronephrosis or hyd roureter. LEFT KIDNEY AND URETER: No solid masses. No significant calcifications. No hydronephrosis or hydr oureter. AORTA AND VESSELS: No aneurysm. No dissection. Renal arteries, SMA, celiac without stenosis. RETROPERITONEUM: No retroperitoneal adenopathy, hemorrhage or masses. LARGE AND SMALL BOWEL: No dilatation. No masses. No wall thickening. APPENDIX: Normal. ABDOMINAL WALL: No hernia or masses. PERITONEAL CAVITY: No free air. No free fluid. No peritoneal implants or masses. PELVIS: No mass or free fluid. Normal bladder. BONES: Sclerotic lesion in the left sacral ala is unchanged. OTHER: No other significant finding. IMPRESSION: 1. Hepatic lesions have decreased in size. 2. Stable left sacral ala sclerotic lesions. TECHNICAL DOCUMENTATION: JOB ID: [id number] Quality ID # 436: Final reports with documentation of one or more dose reduction techniques (e.g., Au tomated exposure control, adjustment of the mA and/or kV according to patient size, use of iterative reconstruction technique) 2010 [employer]- All Rights Reserved Reading location - IP/workstation name: [email or web address]
== END ==
LOC: RAD 09:47
PROVIDERS: ATTEND Physician Assistant Medical
DX: C50.919 Malignant neoplasm of unspecified site of unspecified female breast (principal)
CPT/HCPCS: 70553; 71260; 74177; A9576

== ENCOUNTER 2018-10-11 10:00 | Outpatient (CLI) | payer MEDICAID ==
[2018-10-11 10:19] VITALS: BP 100/66
[2018-10-11] MEDS ORDERED: NORMAL SALINE 250 ML IV PRN (11:22)
[2018-10-11] MEDS ORDERED: PERTUZUMAB 420 MG in NORMAL SALINE 250 ML IV PRN (11:22)
[2018-10-11] MEDS ORDERED: DEXAMETHASONE SOD PHOSPHATE 20 MG in NORMAL SALINE 50 ML IV PRN (11:23)
[2018-10-11] MEDS ORDERED: TRASTUZUMAB IV PRN (11:23)
[2018-10-11] MEDS ORDERED: NORMAL SALINE IV PRN ×2 (11:23→11:25)
[2018-10-11] MEDS ORDERED: FAMOTIDINE 20 MG in NS 50 ML IV PRN (11:24)
[2018-10-11] MEDS ORDERED: DIPHENHYDRAMINE 50 MG in NS 50 ML IV PRN (11:24)
[2018-10-11] MEDS ORDERED: DOCETAXEL IV PRN (11:25)
== END 2018-10-11 16:30 | disposition home or self-care (01) ==
LOC: II 10:00 → 5TH 10:18 → II 16:30
PROVIDERS: ATTEND Internal Medicine
PROC: 3E0430M Introduction of Antineoplastic, Monoclonal Antibody, into Central Vein, Percutaneous Approach (ICD-10-PCS; principal; 2018-10-11)
PROC: 3E04305 Introduction of Other Antineoplastic into Central Vein, Percutaneous Approach (ICD-10-PCS; 2018-10-11)
PROC: 3E0433Z Introduction of Anti-inflammatory into Central Vein, Percutaneous Approach (ICD-10-PCS; 2018-10-11)
PROC: 3E043GC Introduction of Other Therapeutic Substance into Central Vein, Percutaneous Approach (ICD-10-PCS; 2018-10-11)
DX: Z51.11 Encounter for antineoplastic chemotherapy (principal); C50.919 Malignant neoplasm of unspecified site of unspecified female breast; C79.31 Secondary malignant neoplasm of brain; C78.02 Secondary malignant neoplasm of left lung; C78.01 Secondary malignant neoplasm of right lung; Z90.12 Acquired absence of left breast and nipple; Z85.3 Personal history of malignant neoplasm of breast
CPT/HCPCS: 96413; 96415; 96367; 96417; J1200; J7050; S0028; J1100; J1642; J9306; J9355; J9171

== ENCOUNTER 2018-11-01 09:11 | Outpatient (CLI) | payer SELFPAY ==
[2018-11-01 10:08] VITALS: BP 106/60
== END 2018-11-01 14:26 | disposition home or self-care (01) ==
LOC: II 09:11 → 5TH 09:14 → II 14:26
PROVIDERS: ATTEND Internal Medicine
PROC: 3E04305 Introduction of Other Antineoplastic into Central Vein, Percutaneous Approach (ICD-10-PCS; principal; 2018-11-01)
PROC: 3E0430M Introduction of Antineoplastic, Monoclonal Antibody, into Central Vein, Percutaneous Approach (ICD-10-PCS; 2018-11-01)
PROC: 3E0433Z Introduction of Anti-inflammatory into Central Vein, Percutaneous Approach (ICD-10-PCS; 2018-11-01)
PROC: 3E043GC Introduction of Other Therapeutic Substance into Central Vein, Percutaneous Approach (ICD-10-PCS; 2018-11-01)
DX: Z51.11 Encounter for antineoplastic chemotherapy (principal); C50.919 Malignant neoplasm of unspecified site of unspecified female breast; C79.31 Secondary malignant neoplasm of brain; C78.02 Secondary malignant neoplasm of left lung; C78.01 Secondary malignant neoplasm of right lung; Z90.12 Acquired absence of left breast and nipple; Z85.3 Personal history of malignant neoplasm of breast
CPT/HCPCS: 96413; 96367; 96417; J1200; J7050; S0028; J1100; J1642; J9306; J9355; J9171

== ENCOUNTER 2018-12-27 09:40 | Outpatient (CLI) | payer SELFPAY ==
[~2018-12-27 09:40] MED LIST changes: -DEXAMETHASONE SOD PHOSPHATE 20 MG in NORMAL SALINE 50 ML IV PRN; -DIPHENHYDRAMINE 50 MG in NS 50 ML IV PRN; -DOCETAXEL IV PRN; -FAMOTIDINE 20 MG in NS 50 ML IV PRN; -NORMAL SALINE 250 ML @ KVO IV PRN; +NORMAL SALINE 250 ML IV PRN
[2018-12-27 11:15] VITALS: BP 125/66
== END 2018-12-27 12:20 | disposition home or self-care (01) ==
LOC: II 09:40 → 5TH 10:17 → II 12:20
PROVIDERS: ATTEND Internal Medicine
PROC: 3E0430M Introduction of Antineoplastic, Monoclonal Antibody, into Central Vein, Percutaneous Approach (ICD-10-PCS; principal; 2018-12-27)
DX: Z51.11 Encounter for antineoplastic chemotherapy (principal); C50.919 Malignant neoplasm of unspecified site of unspecified female breast; C79.31 Secondary malignant neoplasm of brain; C78.02 Secondary malignant neoplasm of left lung; C78.01 Secondary malignant neoplasm of right lung; Z90.12 Acquired absence of left breast and nipple; Z85.3 Personal history of malignant neoplasm of breast
CPT/HCPCS: 96413; 96417; J7050; J9306; J9355; J1642

== ENCOUNTER → 2018-12-30 | Outpatient (CLI) | payer SELFPAY ==
--- NOTE | 2018-12-30 14:18 | RADIOLOGY REPORT (SQ) ---
EXAM DESCRIPTION: NM MUGA REST COMPLETED DATE/TIME: 12/30/2018 1:49 pm REASON FOR STUDY: Z08 ENCNTR FOR FOLLOW-UP EXAM AFTER TRTMT FOR MALIGNANT NEOPLASM Z08 ENCNTR FOR F OLLOW-UP EXAM AFTER TRTMT FOR MALIGNANT NEOP C50.919 MALIGNANT NEOPLASM OF UNSP SITE OF UNSPECIFIED FEMAL C79.31 SECONDARY MALIGNANT NEOPLASM OF BRAIN COMPARISON: None. RADIONUCLIDE AND DOSE: 25 mCi technetium 99m labeled red blood cells The route of agent administration: Intravenous TECHNIQUE: Following administration of the radionuclide, gated images of the heart are obtained in t hree projections. Left ventricular functional analysis performed. LIMITATIONS: None. FINDINGS: LEFT VENTRICULAR FUNCTION: EJECTION FRACTION: 71%. END-DIASTOLIC VOLUME: 132 mL. END-SYSTOLIC VOLUME: 25 mL. WALL MOTION: No focal wall motion abnormalities. OTHER: No other significant finding. IMPRESSION: NORMAL CARDIAC MUGA STUDY. NORMAL LEFT VENTRICULAR FUNCTION WITH VALUES ABOVE. TECHNICAL DOCUMENTATION: JOB ID: [id number] [employer]- All Rights Reserved Reading location - IP/workstation name: [email or web address]
== END ==
LOC: RAD 11:06
PROVIDERS: ATTEND Internal Medicine Hematology & Oncology
DX: Z08 Encounter for follow-up examination after completed treatment for malignant neoplasm (principal); C50.919 Malignant neoplasm of unspecified site of unspecified female breast; C79.31 Secondary malignant neoplasm of brain
CPT/HCPCS: 78472; A9560; Q9969

== ENCOUNTER → 2019-01-13 | Outpatient (CLI) | payer SELFPAY ==
--- NOTE | 2019-01-14 16:05 | RADIOLOGY REPORT (SQ) ---
EXAM DESCRIPTION: MRI HEAD COMBO COMPLETED DATE/TIME: 01/13/2019 10:35 am REASON FOR STUDY: BREAST CANCER,BRAIN METS C50.919 MALIGNANT NEOPLASM OF UNSP SITE OF UNSPECIFIED F EMAL COMPARISON: 10/07/2018 TECHNIQUE: Multiplanar imaging includes noncontrasted T1, T2, FLAIR, diffusion with ADC map and post gadolinium contrast T1 sequences. Images stored on PACS. CONTRAST TYPE AND DOSE: 15 mL Dotarem. RENAL FUNCTION: Not indicated. ACR Type II contrast agent associated with few, if any, unconfounded cases of NSF LIMITATIONS: None. FINDINGS: ANATOMY: No anomalies. Normal vascular flow voids. Pituitary fossa normal. CSF SPACES: Normal in size and contour. No hemorrhage. CEREBRUM: Multiple small enhancing intra-axial lesions in the left cerebral hemisphere and in the cer ebellum. Series 13, image 198, posterior left frontal lobe lesion has increased in size to 5 x 11 mm . New lesion left parietal cortex image 163, measuring 6 mm. No hemorrhage or mass effect. POSTERIOR FOSSA: Several enhancing intra-axial lesions, the largest right cerebellum measuring 4 x 7 mm series 13, image 66. DIFFUSION IMAGING: Negative for acute or subacute infarction. ORBITS: No masses. Globes normal. PARANASAL SINUSES: Chronic pansinusitis. Chronic fluid mastoid air cells. OTHER: No other significant finding. IMPRESSION: Progressing brain metastasis. EVIDENCE OF ACUTE STROKE: NO. TECHNICAL DOCUMENTATION: JOB ID: [id number]- All Rights Reserved Reading location - IP/workstation name: [email or web address]
== END ==
LOC: RAD 09:43
PROVIDERS: ATTEND Internal Medicine Hematology & Oncology
DX: C79.51 Secondary malignant neoplasm of bone (principal); C50.919 Malignant neoplasm of unspecified site of unspecified female breast
CPT/HCPCS: 70553; A9576

== ENCOUNTER 2019-01-17 09:48 | Outpatient (CLI) | payer SELFPAY ==
[2019-01-16 23:02] LABS: ALKALINE PHOSPHATASE 76 U/L (38-126); ANION GAP 12 (5-19); ASPARTATE AMINO TRANSFERASE 23 U/L (14-36); BILIRUBIN,DIRECT 0.2 mg/dL (0.0-0.4); BILIRUBIN,TOTAL 0.5 mg/dL (0.2-1.3); BLOOD UREA NITROGEN 12 mg/dL (7-20); CARBON DIOXIDE 27 mmol/L (22-30); CHLORIDE 104 mmol/L (98-107); GLUCOSE 90 mg/dL (75-110); POTASSIUM 4.5 mmol/L (3.6-5.0); TOTAL PROTEIN 6.8 g/dL (6.3-8.2)
[~2019-01-17 09:48] MED LIST changes: +NORMAL SALINE 250 ML @ KVO IV PRN; -NORMAL SALINE 250 ML IV PRN; +VINORELBINE TARTRATE IV PRN
[2019-01-17 13:02] VITALS: BP 111/71
== END 2019-01-17 12:45 | disposition home or self-care (01) ==
LOC: II 09:48 → 5TH 09:49 → II 12:45
PROVIDERS: ATTEND Internal Medicine Hematology & Oncology
DX: Z51.11 Encounter for antineoplastic chemotherapy (principal); C50.919 Malignant neoplasm of unspecified site of unspecified female breast; C79.31 Secondary malignant neoplasm of brain; C78.02 Secondary malignant neoplasm of left lung; C78.01 Secondary malignant neoplasm of right lung; Z90.12 Acquired absence of left breast and nipple; Z85.3 Personal history of malignant neoplasm of breast
CPT/HCPCS: 36415; 86300; 80053; 96409; 96413; 96417; J9390; J7050; J9306; J9355; J1642; 96411

== ENCOUNTER → 2019-01-19 | Outpatient (CLI) | payer SELFPAY ==
--- NOTE | 2019-01-19 15:45 | RADIOLOGY REPORT (SQ) ---
EXAM DESCRIPTION: CT CHEST WITH COMPLETED DATE/TIME: 01/19/2019 2:28 pm REASON FOR STUDY: C50.919 MALIGNANT NEOPLASM OF UNSP SITE OF UNSPECIFIED FEMALE BREAST, C79.3 C50.91 9 MALIGNANT NEOPLASM OF UNSP SITE OF UNSPECIFIED FEMAL C79.31 SECONDARY MALIGNANT NEOPLASM OF BRAIN COMPARISON: 10/07/2018 and 05/23/2018. TECHNIQUE: CT scan of the chest performed using helical scanning technique with dynamic intravenous contrast injection. Images reviewed with lung, soft tissue and bone windows. Reconstructed coronal and sagittal MPR and MIP images reviewed. All images stored on PACS. All CT scanners at this facility use dose modulation, iterative reconstruction, and/or weight based d osing when appropriate to reduce radiation dose to as low as reasonably achievable (ALARA). [facility]: Dose Right [facility]: CareDose [facility]: Dose Right [facility]: Teradose 4D [facility]: Invarium CONTRAST TYPE AND DOSE: contrast/concentration: Isovue 350.00 mg/ml; Total Contrast Delivered: 80.0 ml; Total Saline Delivered: 55.0 ml RENAL FUNCTION: None required. The patient is less than 50 years old. RADIATION DOSE: CT Rad equipment meets quality standard of care and radiation dose reduction techniq ues were employed. CTDIvol: 9.1 mGy. DLP: 369 mGy-cm. . LIMITATIONS: None. FINDINGS: LUNGS AND PLEURA: Focal nodularity in the anterior right apex, slightly smaller. May be d ue to scarring. Increasing density in the left lung base in the posterior costophrenic angle. Other marvin no new nodules or masses. Slight increase in the right pleural effusion. HILAR AND MEDIASTINAL STRUCTURES: Numerous hilar and mediastinal lymph nodes, unchanged in size, with progressive dense calcification. HEART AND VASCULAR STRUCTURES: No aneurysm or dissection. No central pulmonary emboli. Stable small pericardial effusion. HARDWARE: None in the chest. UPPER ABDOMEN: No significant findings. Limited exam. THYROID AND OTHER SOFT TISSUES: No masses. No adenopathy. Left mastectomy with breast implant. BONES: No significant finding. OTHER: No other significant finding. IMPRESSION: 1. FOCAL NODULARITY IN THE ANTERIOR RIGHT APEX IS SLIGHTLY SMALLER AND MAY BE DUE SCARRING. INCREASI NG DENSITY IN THE POSTERIOR LEFT LUNG BASE MAY BE DUE TO ATELECTASIS/SCAR. MALIGNANT INVOLVEMENT IS POSSIBLE BUT PROBABLY LESS LIKELY. 2. STABLE HILAR AND MEDIASTINAL LYMPH NODES WITH PROGRESSIVE DEVELOPMENT OF COARSE CALCIFICATIONS. 3. SLIGHT INCREASE IN THE RIGHT PLEURAL EFFUSION. SMALL PERICARDIAL EFFUSION UNCHANGED. TECHNICAL DOCUMENTATION: JOB ID: [id number] Quality ID # 436: Final reports with documentation of one or more dose reduction techniques (e.g., Au tomated exposure control, adjustment of the mA and/or kV according to patient size, use of iterative reconstruction technique) 2010 [employer]- All Rights Reserved Reading location - IP/workstation name: [email or web address]
== END ==
LOC: RAD 13:57
PROVIDERS: ATTEND Internal Medicine Hematology & Oncology
DX: C50.919 Malignant neoplasm of unspecified site of unspecified female breast (principal); C79.31 Secondary malignant neoplasm of brain
CPT/HCPCS: 71260

== ENCOUNTER 2019-01-24 11:10 | Outpatient (CLI) | payer SELFPAY ==
[2019-01-24 11:27] VITALS: BP 104/82
[2019-01-24] MEDS ORDERED: VINORELBINE TARTRATE IV PRN (11:40)
[2019-01-24] MEDS ORDERED: NORMAL SALINE IV PRN (11:40)
[2019-01-24] MEDS ORDERED: NORMAL SALINE 250 ML IV PRN (11:43)
== END 2019-01-24 12:55 | disposition home or self-care (01) ==
LOC: II 11:10 → 5TH 11:13 → II 12:55
PROVIDERS: ATTEND Internal Medicine Hematology & Oncology
DX: Z51.11 Encounter for antineoplastic chemotherapy (principal); C79.31 Secondary malignant neoplasm of brain; C50.919 Malignant neoplasm of unspecified site of unspecified female breast; C78.02 Secondary malignant neoplasm of left lung; C78.01 Secondary malignant neoplasm of right lung; Z90.12 Acquired absence of left breast and nipple; Z85.3 Personal history of malignant neoplasm of breast
CPT/HCPCS: 96409; J9390; J1642

== ENCOUNTER 2019-01-31 08:59 | Outpatient (CLI) | payer SELFPAY ==
[~2019-01-31 08:59] MED LIST changes: -NORMAL SALINE 250 ML @ KVO IV PRN; +NORMAL SALINE 250 ML IV PRN; -PERTUZUMAB 420 MG in NORMAL SALINE 250 ML IV PRN; -TRASTUZUMAB IV PRN
[2019-01-31 09:35] VITALS: BP 116/72
== END 2019-01-31 11:00 | disposition home or self-care (01) ==
LOC: II 08:59 → 5TH 09:00 → II 11:00
PROVIDERS: ATTEND Internal Medicine Hematology & Oncology
DX: Z51.11 Encounter for antineoplastic chemotherapy (principal); C50.919 Malignant neoplasm of unspecified site of unspecified female breast
CPT/HCPCS: 96409; J9390; J1642

== ENCOUNTER 2019-02-07 09:24 | Outpatient (CLI) | payer SELFPAY ==
[~2019-02-07 09:24] MED LIST changes: +PERTUZUMAB 420 MG in NORMAL SALINE 250 ML IV PRN; +TRASTUZUMAB IV PRN
[2019-02-07 11:25] VITALS: BP 95/71
== END 2019-02-07 14:35 | disposition home or self-care (01) ==
LOC: II 09:24 → 5TH 09:26 → II 14:35
PROVIDERS: ATTEND Internal Medicine Hematology & Oncology
DX: Z51.11 Encounter for antineoplastic chemotherapy (principal); C50.919 Malignant neoplasm of unspecified site of unspecified female breast; C79.31 Secondary malignant neoplasm of brain
CPT/HCPCS: 96409; 96413; 96415; J9390 ×2; J7050; J9306; J9355; J1642; 96411; 96417

== ENCOUNTER 2019-02-14 10:01 | Outpatient (CLI) | payer SELFPAY ==
[~2019-02-14 10:01] MED LIST changes: -PERTUZUMAB 420 MG in NORMAL SALINE 250 ML IV PRN; -TRASTUZUMAB IV PRN
[2019-02-14 10:14] VITALS: BP 113/69
== END 2019-02-14 11:18 | disposition home or self-care (01) ==
LOC: II 10:01 → 5TH 10:03 → II 11:18
PROVIDERS: ATTEND Internal Medicine
DX: Z51.11 Encounter for antineoplastic chemotherapy (principal); C50.919 Malignant neoplasm of unspecified site of unspecified female breast
CPT/HCPCS: 96409; J9390 ×2; J1642

== ENCOUNTER 2019-02-21 13:12 | Outpatient (CLI) | payer SELFPAY ==
[2019-02-21 13:39] VITALS: BP 102/75
== END 2019-02-21 14:55 | disposition home or self-care (01) ==
LOC: II 13:12 → 5TH 13:14 → II 14:55
PROVIDERS: ATTEND Internal Medicine
DX: Z51.11 Encounter for antineoplastic chemotherapy (principal); C50.919 Malignant neoplasm of unspecified site of unspecified female breast
CPT/HCPCS: 96409; J9390 ×2; J1642

== ENCOUNTER 2019-02-28 09:42 | Outpatient (CLI) | payer SELFPAY ==
[~2019-02-28 09:42] MED LIST changes: +PERTUZUMAB 420 MG in NORMAL SALINE 250 ML IV PRN; +TRASTUZUMAB IV PRN
== END 2019-02-28 13:14 | disposition home or self-care (01) ==
LOC: II 09:42 → 5TH 09:52 → II 13:14
PROVIDERS: ATTEND Internal Medicine
DX: Z51.11 Encounter for antineoplastic chemotherapy (principal); C50.919 Malignant neoplasm of unspecified site of unspecified female breast
CPT/HCPCS: 96411; 96413; 96417; J9390 ×2; J7050; J9306; J9355; J1642

== ENCOUNTER 2019-03-07 10:05 | Outpatient (CLI) | payer SELFPAY ==
[~2019-03-07 10:05] MED LIST changes: -PERTUZUMAB 420 MG in NORMAL SALINE 250 ML IV PRN; -TRASTUZUMAB IV PRN
[2019-03-07 10:27] VITALS: BP 110/80
[2019-03-07] MEDS ORDERED: NORMAL SALINE IV PRN (11:06)
[2019-03-07] MEDS ORDERED: VINORELBINE TARTRATE IV PRN (11:06)
== END 2019-03-07 11:45 | disposition home or self-care (01) ==
LOC: II 10:05 → 5TH 10:06 → II 11:45
PROVIDERS: ATTEND Internal Medicine Hematology & Oncology
DX: Z51.11 Encounter for antineoplastic chemotherapy (principal); C50.919 Malignant neoplasm of unspecified site of unspecified female breast
CPT/HCPCS: 96409; J9390 ×2; J1642

== ENCOUNTER 2019-03-14 09:53 | Outpatient (CLI) | payer SELFPAY ==
[2019-03-14 10:02] VITALS: BP 102/66
== END 2019-03-14 10:54 | disposition home or self-care (01) ==
LOC: II 09:53 → 5TH 10:24 → II 10:54
PROVIDERS: ATTEND Internal Medicine Hematology & Oncology
DX: Z51.11 Encounter for antineoplastic chemotherapy (principal); C50.919 Malignant neoplasm of unspecified site of unspecified female breast; C78.02 Secondary malignant neoplasm of left lung; C78.01 Secondary malignant neoplasm of right lung; C79.31 Secondary malignant neoplasm of brain; Z90.12 Acquired absence of left breast and nipple; Z85.3 Personal history of malignant neoplasm of breast; Z92.3 Personal history of irradiation
CPT/HCPCS: 96409; J9390 ×2; J1642

== ENCOUNTER 2019-03-21 09:40 | Outpatient (CLI) | payer SELFPAY ==
[~2019-03-21 09:40] MED LIST changes: +PERTUZUMAB 420 MG in NORMAL SALINE 250 ML IV PRN; +TRASTUZUMAB IV PRN
[2019-03-21 09:54] VITALS: BP 92/67
== END 2019-03-21 12:35 | disposition home or self-care (01) ==
LOC: II 09:40 → 5TH 09:42 → II 12:35
PROVIDERS: ATTEND Internal Medicine Hematology & Oncology
DX: Z51.11 Encounter for antineoplastic chemotherapy (principal); C50.919 Malignant neoplasm of unspecified site of unspecified female breast
CPT/HCPCS: 96411; 96413; 96415; J9390 ×2; J7050; J9306; J9355; J1642; 96417

== ENCOUNTER → 2019-03-27 | Outpatient (CLI) | payer SELFPAY ==
--- NOTE | 2019-03-27 13:27 | RADIOLOGY REPORT (SQ) ---
EXAM DESCRIPTION: NM MUGA REST COMPLETED DATE/TIME: 03/27/2019 12:16 pm REASON FOR STUDY: ENCTR FOR F/U EXAM AFTER COMPLETED TX FOR MALIGNANT NEOPLASM (Z08) Z08 ENCNTR FOR FOLLOW-UP EXAM AFTER TRTMT FOR MALIGNANT NEOP COMPARISON: 12/30/2018 RADIONUCLIDE AND DOSE: 25 mCi technetium 99m labeled red blood cells The route of agent administration: Intravenous TECHNIQUE: Following administration of the radionuclide, gated images of the heart are obtained in t hree projections. Left ventricular functional analysis performed. LIMITATIONS: None. FINDINGS: LEFT VENTRICULAR FUNCTION: EJECTION FRACTION: 60%. END-DIASTOLIC VOLUME: 87 mL. END-SYSTOLIC VOLUME: 20 set mL. WALL MOTION: No focal wall motion abnormalities. OTHER: No other significant finding. IMPRESSION: Normal left ventricular function with an ejection fraction of 60%. No regional wall mot ion abnormalities. Please note the ejection fraction on the prior study was 71% TECHNICAL DOCUMENTATION: JOB ID: [id number] 2010 [employer]- All Rights Reserved Reading location - IP/workstation name: [email or web address]
== END ==
LOC: RAD 11:05
PROVIDERS: ATTEND Internal Medicine
DX: Z08 Encounter for follow-up examination after completed treatment for malignant neoplasm (principal); Z85.3 Personal history of malignant neoplasm of breast
CPT/HCPCS: 78472; A9560; Q9969

== ENCOUNTER 2019-03-28 09:35 | Outpatient (CLI) | payer SELFPAY ==
[~2019-03-28 09:35] MED LIST changes: -PERTUZUMAB 420 MG in NORMAL SALINE 250 ML IV PRN; -TRASTUZUMAB IV PRN
[2019-03-28 09:50] VITALS: BP 98/71
== END 2019-03-28 10:53 | disposition home or self-care (01) ==
LOC: II 09:35 → 5TH 09:36 → II 10:53
PROVIDERS: ATTEND Internal Medicine Hematology & Oncology
DX: Z51.11 Encounter for antineoplastic chemotherapy (principal); C50.919 Malignant neoplasm of unspecified site of unspecified female breast
CPT/HCPCS: 96409; J9390 ×2; J1642; 96413

== ENCOUNTER 2019-04-04 09:38 | Outpatient (CLI) | payer SELFPAY ==
[2019-04-04 10:00] VITALS: BP 105/69
== END 2019-04-04 11:05 | disposition home or self-care (01) ==
LOC: II 09:38 → 5TH 09:41 → II 11:05
PROVIDERS: ATTEND Internal Medicine Hematology & Oncology
DX: Z51.11 Encounter for antineoplastic chemotherapy (principal); C79.31 Secondary malignant neoplasm of brain; C50.919 Malignant neoplasm of unspecified site of unspecified female breast
CPT/HCPCS: 96409; J9390 ×2; J1642; 96413

== ENCOUNTER 2019-04-11 09:20 | Outpatient (CLI) | payer SELFPAY ==
[~2019-04-11 09:20] MED LIST changes: +NORMAL SALINE 250 ML @ KVO IV PRN; -NORMAL SALINE 250 ML IV PRN; +PERTUZUMAB 420 MG in NORMAL SALINE 250 ML IV PRN; +TRASTUZUMAB IV PRN
[2019-04-11 09:25] VITALS: BP 112/86
== END 2019-04-11 11:56 | disposition home or self-care (01) ==
LOC: 5TH 09:20 → II 09:20
PROVIDERS: ATTEND Internal Medicine Hematology & Oncology
DX: Z51.11 Encounter for antineoplastic chemotherapy (principal); C50.919 Malignant neoplasm of unspecified site of unspecified female breast; D70.9 Neutropenia, unspecified
CPT/HCPCS: 96413; 96417; J7050; J9306; J9355; J1642

== ENCOUNTER 2019-04-18 10:34 | Outpatient (CLI) | payer SELFPAY ==
[~2019-04-18 10:34] MED LIST changes: -NORMAL SALINE 250 ML @ KVO IV PRN; +NORMAL SALINE 250 ML IV PRN; -PERTUZUMAB 420 MG in NORMAL SALINE 250 ML IV PRN; -TRASTUZUMAB IV PRN
[2019-04-18 10:49] VITALS: BP 113/72
== END 2019-04-18 11:41 | disposition home or self-care (01) ==
LOC: II 10:34 → 5TH 10:54 → II 11:41
PROVIDERS: ATTEND Internal Medicine Hematology & Oncology
DX: Z51.11 Encounter for antineoplastic chemotherapy (principal); C50.919 Malignant neoplasm of unspecified site of unspecified female breast
CPT/HCPCS: 96409; J9390 ×2; J1642

== ENCOUNTER 2019-04-25 09:52 | Outpatient (CLI) | payer SELFPAY ==
[2019-04-25 11:47] VITALS: BP 96/61
== END 2019-04-25 11:30 | disposition home or self-care (01) ==
LOC: II 09:52 → 5TH 09:55 → II 11:30
PROVIDERS: ATTEND Internal Medicine Hematology & Oncology
DX: Z51.11 Encounter for antineoplastic chemotherapy (principal); C50.919 Malignant neoplasm of unspecified site of unspecified female breast
CPT/HCPCS: 96413; J9390 ×2; J1642; 96409

== ENCOUNTER 2019-05-02 09:18 | Outpatient (CLI) | payer SELFPAY ==
[~2019-05-02 09:18] MED LIST changes: +PERTUZUMAB 420 MG in NORMAL SALINE 250 ML IV PRN; +TRASTUZUMAB IV PRN
[2019-05-02 10:09] VITALS: BP 124/73
== END 2019-05-02 12:18 | disposition home or self-care (01) ==
LOC: II 09:18 → ASU 09:18 → 5TH 09:18 → II 12:18
PROVIDERS: ATTEND Internal Medicine Hematology & Oncology
DX: Z51.11 Encounter for antineoplastic chemotherapy (principal); C50.919 Malignant neoplasm of unspecified site of unspecified female breast
CPT/HCPCS: 96411; 96413; 96417; J9390 ×2; J7050; J9306; J9355; J1642

== ENCOUNTER 2019-05-09 10:13 | Outpatient (CLI) | payer SELFPAY ==
[~2019-05-09 10:13] MED LIST changes: -PERTUZUMAB 420 MG in NORMAL SALINE 250 ML IV PRN; -TRASTUZUMAB IV PRN
[2019-05-09 10:51] VITALS: BP 96/69
== END 2019-05-09 11:32 | disposition home or self-care (01) ==
LOC: II 10:13 → 5TH 10:13 → II 11:32
PROVIDERS: ATTEND Internal Medicine Hematology & Oncology
DX: Z51.11 Encounter for antineoplastic chemotherapy (principal); C50.919 Malignant neoplasm of unspecified site of unspecified female breast
CPT/HCPCS: 96409; J9390 ×2; J1642; 96413

== ENCOUNTER 2019-05-23 11:00 | Outpatient (CLI) | payer SELFPAY ==
[~2019-05-23 11:00] MED LIST changes: +PERTUZUMAB 420 MG in NORMAL SALINE 250 ML IV PRN; +TRASTUZUMAB IV PRN
[2019-05-23 11:08] VITALS: BP 102/67
== END 2019-05-23 14:15 | disposition home or self-care (01) ==
LOC: II 11:00 → 5TH 11:06 → II 14:15
PROVIDERS: ATTEND Internal Medicine Hematology & Oncology
DX: Z51.11 Encounter for antineoplastic chemotherapy (principal); C50.919 Malignant neoplasm of unspecified site of unspecified female breast
CPT/HCPCS: 96411; 96413; 96417; J9390 ×2; J7050; J9306; J9355; J1642

== ENCOUNTER → 2019-05-24 | Outpatient (CLI) | payer MEDICAID ==
--- NOTE | 2019-05-24 14:51 | RADIOLOGY REPORT (SQ) ---
EXAM DESCRIPTION: CT CHEST WITH; CT ABD/PELVIS WITH IV ONLY IMAGES COMPLETED DATE/TIME: 05/24/2019 2:23 pm REASON FOR STUDY: BREAST CA (C50.912) C50.912 MALIGNANT NEOPLASM OF UNSPECIFIED SITE OF LEFT FEMAL CONTRAST TYPE AND DOSE: contrast/concentration: Isovue 350.00 mg/ml; Total Contrast Delivered: 93.0 ml; Total Saline Delivered: 71.0 ml RENAL FUNCTION: BUN 21, creatinine 0.52 COMPARISON: None. TECHNIQUE: CT scan of the chest performed using helical scanning technique with dynamic intravenous contrast injection. Images reviewed with lung, soft tissue and bone windows. Reconstructed coronal a nd sagittal MPR images reviewed. All images stored on PACS. All CT scanners at this facility use dose modulation, iterative reconstruction, and/or weight based d osing when appropriate to reduce radiation dose to as low as reasonably achievable (ALARA). [facility]: Dose Right [facility]: CareDose [facility]: Dose Right [facility]: Teradose 4D [facility]: [employer] RADIATION DOSE: CT Rad equipment meets quality standard of care and radiation dose reduction techniq ues were employed. CTDIvol: 6.2 - 8.8 mGy. DLP: 1178 mGy-cm. . LIMITATIONS: None. FINDINGS: AXILLAE: No adenopathy. CHEST WALL: No masses. No subcutaneous air. LUNGS: Focal subpleural nodule in the right anterior apex is unchanged. There is a 6.3 mm nodule on series 6, image 60. This previously measured 8.9 mm. Basilar airspace disease is improved bilateral ly. There is bibasilar atelectasis PLEURA: Small effusions. Improved from prior study. THYROID: No masses or significant asymmetry. HILAR AND MEDIASTINAL STRUCTURES: There are numerous calcified nodes. No new adenopathy. There is a 16.8 mm calcified node in the AP window unchanged from prior exam. There is an approximately 17.8 m m subcarinal node also unchanged in size allowing for slight differences in scan technique. The node does appear to be smaller in AP diameter measured 9.3 mm compared to 11 mm on previous exam. AORTA AND GREAT VESSELS: No aneurysm. No dissection. PULMONARY ARTERIES: No identified pulmonary emboli. Study not optimized for the pulmonary arteries. HEART: Small pericardial effusion is slightly decreased in size. HARDWARE AND LIFELINES: None. BONES: Sclerotic lesion in the inferior aspect of T3 is significantly improved. OTHER: No other significant finding. IMPRESSION: 1. Small subpleural nodule in the right lung apex anteriorly is stable in appearance. M ost likely scar. 2. 6.3 mm nodule best demonstrated on series 6, image 60 in the right upper lobe. This previously m easured 8.9 mm. 3. Basilar airspace disease improving. 4. Calcified mediastinal lymph nodes are stable in size or are slightly smaller in size as described above. COMPARISON: None. RADIATION DOSE: CT Rad equipment meets quality standard of care and radiation dose reduction techniq ues were employed. CTDIvol: 6.2 - 8.8 mGy. DLP: 1178 mGy-cm. mGy. TECHNIQUE: CT scan of the abdomen and pelvis performed with intravenous and oral contrast using sally bisi scanning technique with dynamic intravenous contrast injection. Images reviewed with lung, soft tissue and bone windows. Reconstructed coronal and sagittal MPR images reviewed. Delayed images for evaluation of the urinary system also acquired and evaluated. All images stored on PACS. All CT scanners at this facility use dose modulation, iterative reconstruction, and/or weight based d osing when appropriate to reduce radiation dose to as low as reasonably achievable (ALARA). [facility]: Dose Right [facility]: [employer] [facility]: Dose Right [facility]: Teradose 4D [facility]: [employer] FINDINGS: LIVER: Decreased attenuation throughout the liver consistent with fatty infiltration. Sma ll focal lesions previously described are no longer noted. SPLEEN: Normal size. No focal lesions. PANCREAS: No masses. No significant calcifications. No adjacent inflammation or peripancreatic flui d collections. Pancreatic duct not dilated. GALLBLADDER: No identified stones by CT criteria. No inflammatory changes to suggest cholecystitis. ADRENAL GLANDS: No significant masses or asymmetry. RIGHT KIDNEY AND URETER: No solid masses. No significant calcifications. No hydronephrosis or hyd roureter. LEFT KIDNEY AND URETER: No solid masses. No significant calcifications. No hydronephrosis or hydr oureter. AORTA AND VESSELS: No aneurysm. No dissection. Renal arteries, SMA, celiac without stenosis. RETROPERITONEUM: No retroperitoneal adenopathy, hemorrhage or masses. LARGE AND SMALL BOWEL: No dilatation. No masses. No wall thickening. APPENDIX: Normal. ABDOMINAL WALL: No hernia or masses. PERITONEAL CAVITY: No free air. No free fluid. No peritoneal implants or masses. PELVIS: No mass or free fluid. Normal bladder. BONES: Stable sclerotic lesion in the left sacral ala. Focal sclerotic lesion in the posterior aspec t of L4 is slightly improved compared to prior study. OTHER: No other significant finding. IMPRESSION: Hepatic lesions previously described are no longer noted consistent with response to the rapy. Left sacral sclerotic lesion is unchanged. Small sclerotic lesion in the posterior aspect of L4 is s lightly improved when compared to prior study. TECHNICAL DOCUMENTATION: JOB ID: [id number] Quality ID # [id number]: Final reports with documentation of one or more dose reduction techniques (e.g., Au tomated exposure control, adjustment of the mA and/or kV according to patient size, use of iterative reconstruction technique) 2010 [employer]- All Rights Reserved Reading location - IP/workstation name: [email or web address]
== END ==
LOC: RAD 13:37
PROVIDERS: ATTEND Nurse Practitioner Family
DX: C50.912 Malignant neoplasm of unspecified site of left female breast (principal); R91.8 Other nonspecific abnormal finding of lung field; C78.7 Secondary malignant neoplasm of liver and intrahepatic bile duct
CPT/HCPCS: 71260; 74177

== ENCOUNTER 2019-05-30 10:24 | Outpatient (CLI) | payer SELFPAY ==
[~2019-05-30 10:24] MED LIST changes: -PERTUZUMAB 420 MG in NORMAL SALINE 250 ML IV PRN; -TRASTUZUMAB IV PRN
[2019-05-30 10:36] VITALS: BP 105/73
== END 2019-05-30 11:13 | disposition home or self-care (01) ==
LOC: II 10:24 → 5TH 10:25 → II 11:13
PROVIDERS: ATTEND Internal Medicine Hematology & Oncology
DX: Z51.11 Encounter for antineoplastic chemotherapy (principal); C50.919 Malignant neoplasm of unspecified site of unspecified female breast
CPT/HCPCS: 96409; J9390 ×2; J1642

== ENCOUNTER → 2019-06-01 | Outpatient (CLI) | payer SELFPAY ==
--- NOTE | 2019-06-01 11:13 | RADIOLOGY REPORT (SQ) ---
EXAM DESCRIPTION: MRI HEAD COMBO IMAGES COMPLETED DATE/TIME: 06/01/2019 10:52 am REASON FOR STUDY: BRAIN CA (C79.31) C79.31 SECONDARY MALIGNANT NEOPLASM OF BRAIN COMPARISON: 01/13/2019 TECHNIQUE: Multiplanar imaging includes noncontrasted T1, T2, FLAIR, diffusion with ADC map and post gadolinium contrast T1 sequences. Images stored on PACS. CONTRAST TYPE AND DOSE: 15 mL Dotare[employer]. RENAL FUNCTION: Not indicated. ACR Type II contrast agent associated with few, if any, unconfounded cases of NSF LIMITATIONS: None. FINDINGS: ANATOMY: No anomalies. Normal vascular flow voids. Pituitary fossa normal. CSF SPACES: Normal in size and contour. No hemorrhage. CEREBRUM: Sulci and gyri normal in size and contour. Normal white matter signal on FLAIR imaging. No evidence of hemorrhage, mass, or extraaxial fluid collection. No abnormal enhancement post contrast. POSTERIOR FOSSA: Series 10, image 5, or residual 4 mm enhancing lesion left cerebellum. Right cerebe llar lesion has resolved. DIFFUSION IMAGING: Negative for acute or subacute infarction. ORBITS: No masses. Globes normal. PARANASAL SINUSES: No fluid levels. Mucosa normal. OTHER: No other significant finding. IMPRESSION: Good response to therapy. Solitary residual metastatic lesion left cerebellum. EVIDENCE OF ACUTE STROKE: NO. TECHNICAL DOCUMENTATION: JOB ID: [id number] 2010 [email or web address]- All Rights Reserved Reading location - IP/workstation name: [email or web address]
== END ==
LOC: RAD 09:36
PROVIDERS: ATTEND Internal Medicine Hematology & Oncology
DX: C79.31 Secondary malignant neoplasm of brain (principal)
CPT/HCPCS: 70553; A9576

== ENCOUNTER 2019-06-06 10:18 | Outpatient (CLI) | payer SELFPAY ==
[2019-06-06 10:40] VITALS: BP 107/73
== END 2019-06-06 11:41 | disposition home or self-care (01) ==
LOC: II 10:18 → 5TH 10:20 → II 11:41
PROVIDERS: ATTEND Internal Medicine Hematology & Oncology
DX: Z51.11 Encounter for antineoplastic chemotherapy (principal); C50.919 Malignant neoplasm of unspecified site of unspecified female breast
CPT/HCPCS: 96413; J9390 ×2; J1642; 96409

== ENCOUNTER 2019-06-20 09:29 | Outpatient (CLI) | payer MEDICAID ==
[~2019-06-20 09:29] MED LIST changes: +PERTUZUMAB 420 MG in NORMAL SALINE 250 ML IV PRN; +TRASTUZUMAB IV PRN
[2019-06-20 09:53] VITALS: BP 99/70
== END 2019-06-20 13:00 | disposition home or self-care (01) ==
LOC: II 09:29 → 5TH 09:33 → II 13:00
PROVIDERS: ATTEND Internal Medicine Hematology & Oncology
DX: Z51.11 Encounter for antineoplastic chemotherapy (principal); C50.919 Malignant neoplasm of unspecified site of unspecified female breast
CPT/HCPCS: 96411; 96413; 96417; J9390 ×2; J7050; J9306; J9355; J1642

== ENCOUNTER 2019-06-27 09:49 | Outpatient (CLI) | payer SELFPAY ==
[~2019-06-27 09:49] MED LIST changes: -PERTUZUMAB 420 MG in NORMAL SALINE 250 ML IV PRN; -TRASTUZUMAB IV PRN
[2019-06-27 10:08] VITALS: BP 115/79
== END 2019-06-27 11:47 | disposition home or self-care (01) ==
LOC: II 09:49 → 5TH 10:07 → II 11:47
PROVIDERS: ATTEND Internal Medicine Hematology & Oncology
DX: Z51.11 Encounter for antineoplastic chemotherapy (principal); C50.919 Malignant neoplasm of unspecified site of unspecified female breast
CPT/HCPCS: 96409; J9390 ×2; J1642

== ENCOUNTER → 2019-06-29 | Outpatient (CLI) | payer SELFPAY ==
--- NOTE | 2019-06-29 15:43 | RADIOLOGY REPORT (SQ) ---
EXAM DESCRIPTION: NM MUGA REST IMAGES COMPLETED DATE/TIME: 06/29/2019 3:04 pm REASON FOR STUDY: Z08 ENCNTR FOR FOLLOW-UP EXAM AFTER TRTMT FOR MALIGNANT NEOPLASM, Z51.11 MA Z08 E NCNTR FOR FOLLOW-UP EXAM AFTER TRTMT FOR MALIGNANT NEOP C50.919 MALIGNANT NEOPLASM OF UNSP SITE OF U NSPECIFIED FEMAL COMPARISON: 03/27/2019. RADIONUCLIDE AND DOSE: 24.5 mCi technetium 99m labeled red blood cells The route of agent administration: Intravenous TECHNIQUE: Following administration of the radionuclide, gated images of the heart are obtained in t hree projections. Left ventricular functional analysis performed. LIMITATIONS: None. FINDINGS: LEFT VENTRICULAR FUNCTION: EJECTION FRACTION: 67%. END-DIASTOLIC VOLUME: 87 mL. END-SYSTOLIC VOLUME: 28 mL. WALL MOTION: No focal wall motion abnormalities. OTHER: No other significant finding. IMPRESSION: NORMAL CARDIAC MUGA STUDY. NORMAL LEFT VENTRICULAR FUNCTION WITH VALUES ABOVE. TECHNICAL DOCUMENTATION: JOB ID: [id number] 2010 [employer]- All Rights Reserved Reading location - IP/workstation name: [email or web address]
== END ==
LOC: RAD 13:16
PROVIDERS: ATTEND Internal Medicine Hematology & Oncology
DX: Z13.6 Encounter for screening for cardiovascular disorders (principal); C50.919 Malignant neoplasm of unspecified site of unspecified female breast; Z08 Encounter for follow-up examination after completed treatment for malignant neoplasm; Z51.11 Encounter for antineoplastic chemotherapy
CPT/HCPCS: 78472; A9560; Q9969

== ENCOUNTER 2019-07-04 10:07 | Outpatient (CLI) | payer SELFPAY ==
[2019-07-04 10:18] VITALS: BP 112/54
== END 2019-07-04 12:05 | disposition home or self-care (01) ==
LOC: II 10:07 → 5TH 10:08 → II 12:05
PROVIDERS: ATTEND Internal Medicine Hematology & Oncology
DX: Z51.11 Encounter for antineoplastic chemotherapy (principal); C50.919 Malignant neoplasm of unspecified site of unspecified female breast; D70.9 Neutropenia, unspecified
CPT/HCPCS: 96409; J9390 ×2; J1642

== ENCOUNTER 2019-07-11 09:07 | Outpatient (CLI) | payer MEDICAID ==
[~2019-07-11 09:07] MED LIST changes: +PERTUZUMAB 420 MG in NORMAL SALINE 250 ML IV PRN; +TRASTUZUMAB IV PRN; +ZOLEDRONIC ACID 4 MG/100 ML RTU IV PRN
[2019-07-11 09:31] VITALS: BP 99/71
== END 2019-07-11 11:15 | disposition home or self-care (01) ==
LOC: II 09:07 → 5TH 09:12 → II 11:15
PROVIDERS: ATTEND Internal Medicine Hematology & Oncology
DX: Z51.11 Encounter for antineoplastic chemotherapy (principal); C50.919 Malignant neoplasm of unspecified site of unspecified female breast
CPT/HCPCS: 96413; 96367; 96417; J7050; J3489; J9306; J9355; J1642

== ENCOUNTER → 2019-07-17 | Outpatient (CLI) | payer MEDICAID | LOC: SP 17:38 | PROVIDERS: ATTEND Nurse Practitioner Family | DX: M79.89 Other specified soft tissue disorders (principal) ==

== ENCOUNTER 2019-07-25 10:39 | Outpatient (CLI) | payer MEDICAID ==
[~2019-07-25 10:39] MED LIST changes: -PERTUZUMAB 420 MG in NORMAL SALINE 250 ML IV PRN; -TRASTUZUMAB IV PRN; -ZOLEDRONIC ACID 4 MG/100 ML RTU IV PRN
[2019-07-25 11:06] VITALS: BP 151/100
== END 2019-07-25 11:57 | disposition home or self-care (01) ==
LOC: II 10:39 → 5TH 11:10 → II 11:57
PROVIDERS: ATTEND Internal Medicine Hematology & Oncology
DX: Z51.11 Encounter for antineoplastic chemotherapy (principal); C50.919 Malignant neoplasm of unspecified site of unspecified female breast
CPT/HCPCS: 96409; J9390; J1642

== ENCOUNTER 2019-08-01 09:25 | Outpatient (CLI) | payer MEDICAID ==
[~2019-08-01 09:25] MED LIST changes: +PERTUZUMAB 420 MG in NORMAL SALINE 250 ML IV PRN; +TRASTUZUMAB IV PRN
[2019-08-01 09:43] VITALS: BP 100/70
== END 2019-08-01 12:30 | disposition home or self-care (01) ==
LOC: II 09:25 → 5TH 09:27 → II 12:30
PROVIDERS: ATTEND Internal Medicine Hematology & Oncology
DX: Z51.11 Encounter for antineoplastic chemotherapy (principal); C50.919 Malignant neoplasm of unspecified site of unspecified female breast
CPT/HCPCS: 96411; 96413; 96417; J9390; J7050; J9306; J9355; J1642

== ENCOUNTER 2019-08-08 11:01 | Outpatient (CLI) | payer MEDICAID ==
[~2019-08-08 11:01] MED LIST changes: -PERTUZUMAB 420 MG in NORMAL SALINE 250 ML IV PRN; -TRASTUZUMAB IV PRN; +ZOLEDRONIC ACID/MANNITOL/WATER 4 MG/100 ML INFUS..BTL IV PRN
[2019-08-08 11:11] VITALS: BP 119/79
== END 2019-08-08 12:25 | disposition home or self-care (01) ==
LOC: II 11:01 → 5TH 11:02 → II 12:25
PROVIDERS: ATTEND Internal Medicine Hematology & Oncology
DX: Z51.11 Encounter for antineoplastic chemotherapy (principal); C50.919 Malignant neoplasm of unspecified site of unspecified female breast
CPT/HCPCS: 96409; 96375; J9390; J3489; J1642

== ENCOUNTER 2019-08-15 10:49 | Outpatient (CLI) | payer MEDICAID ==
[~2019-08-15 10:49] MED LIST changes: +NORMAL SALINE 250 ML @ KVO IV PRN; -NORMAL SALINE 250 ML IV PRN; -ZOLEDRONIC ACID/MANNITOL/WATER 4 MG/100 ML INFUS..BTL IV PRN
[2019-08-15 10:58] VITALS: BP 110/57
== END 2019-08-15 12:25 | disposition home or self-care (01) ==
LOC: II 10:49 → 5TH 10:50 → II 12:25
PROVIDERS: ATTEND Internal Medicine Hematology & Oncology
DX: Z51.11 Encounter for antineoplastic chemotherapy (principal); C50.919 Malignant neoplasm of unspecified site of unspecified female breast
CPT/HCPCS: 96409; J9390; J1642

== ENCOUNTER 2019-08-22 09:52 | Outpatient (CLI) | payer MEDICAID ==
[~2019-08-22 09:52] MED LIST changes: +PERTUZUMAB 420 MG in NORMAL SALINE 250 ML IV PRN; +TRASTUZUMAB IV PRN
[2019-08-22 10:05] VITALS: BP 100/61
== END 2019-08-22 13:00 | disposition home or self-care (01) ==
LOC: II 09:52 → 5TH 09:53 → II 13:00
PROVIDERS: ATTEND Internal Medicine Hematology & Oncology
DX: Z51.11 Encounter for antineoplastic chemotherapy (principal); C50.919 Malignant neoplasm of unspecified site of unspecified female breast; C79.51 Secondary malignant neoplasm of bone; D70.9 Neutropenia, unspecified
CPT/HCPCS: 96411; 96413; 96417; J9390; J7050; J9306; J9355; J1642; 96409; 96415

== ENCOUNTER 2019-08-29 12:37 | Outpatient (CLI) | payer MEDICAID ==
[~2019-08-29 12:37] MED LIST changes: -NORMAL SALINE 250 ML @ KVO IV PRN; +NORMAL SALINE 250 ML IV PRN; -PERTUZUMAB 420 MG in NORMAL SALINE 250 ML IV PRN; -TRASTUZUMAB IV PRN
[2019-08-29 12:50] VITALS: BP 111/90
== END 2019-08-29 13:37 | disposition home or self-care (01) ==
LOC: II 12:37 → 5TH 12:39 → II 13:37
PROVIDERS: ATTEND Internal Medicine Hematology & Oncology
DX: Z51.11 Encounter for antineoplastic chemotherapy (principal); C50.919 Malignant neoplasm of unspecified site of unspecified female breast; C79.51 Secondary malignant neoplasm of bone
CPT/HCPCS: 96409; J9390; J1642

== ENCOUNTER 2019-09-05 09:57 | Outpatient (CLI) | payer MEDICAID ==
[~2019-09-05 09:57] MED LIST changes: +NORMAL SALINE 250 ML @ KVO IV PRN; -NORMAL SALINE 250 ML IV PRN; +ZOLEDRONIC ACID 4 MG/100 ML RTU IV PRN
[2019-09-05 10:46] VITALS: BP 97/64
== END 2019-09-05 11:00 | disposition home or self-care (01) ==
LOC: II 09:57 → 5TH 09:58 → II 11:00
PROVIDERS: ATTEND Internal Medicine Hematology & Oncology
DX: Z51.11 Encounter for antineoplastic chemotherapy (principal); C50.919 Malignant neoplasm of unspecified site of unspecified female breast; C79.51 Secondary malignant neoplasm of bone
CPT/HCPCS: 96409; 96367; J9390; J3489; J1642

== ENCOUNTER → 2019-09-05 | Outpatient (CLI) | payer MEDICAID ==
--- NOTE | 2019-09-06 11:17 | RADIOLOGY REPORT (SQ) ---
EXAM DESCRIPTION: MRI HEAD COMBO IMAGES COMPLETED DATE/TIME: 09/05/2019 7:13 pm REASON FOR STUDY: C50.919 MALIGNANT NEOPLASM OF UNSP SITE OF UNSPECIFIED FEMALE BREAST C50.919 CHARISSA GNANT NEOPLASM OF UNSP SITE OF UNSPECIFIED FEMAL COMPARISON: MRI brain 01/13/2019, MRI brain 06/01/2019 TECHNIQUE: Multiplanar imaging includes noncontrasted T1, T2, FLAIR, diffusion with ADC map and post gadolinium contrast T1 sequences. Images stored on PACS. CONTRAST TYPE AND DOSE: 15 mL Prohance. RENAL FUNCTION: Not indicated. ACR Type II contrast agent associated with few, if any, unconfounded cases of NSF LIMITATIONS: None. FINDINGS: ANATOMY: No anomalies. Normal vascular flow voids. Pituitary fossa normal. CSF SPACES: Normal in size and contour. No hemorrhage. CEREBRUM: Sulci and gyri normal in size and contour. Normal white matter signal on FLAIR imaging. No evidence of hemorrhage, mass, or extraaxial fluid collection. Stable 3.8 mm enhancing focus within t he left cerebellar hemisphere (series 13, image 41). Stable additional enhancing focus within the ri ght cerebellar hemisphere measuring 4.7 mm (series 13, image 53). Stable enhancing focus within the left parietal cortex measuring 4.3 mm (series 13, image 143). Stable minimal serpiginous enhancement along the previously-seen left frontal lobe cortical lesion (series 13, image 22). No new discrete enhancing lesions. Mild nonspecific periventricular white matter change, stable. POSTERIOR FOSSA: No signal alteration. No hemorrhage. No edema, masses, or mass effect. Internal fitz tory canals, cerebellopontine angles, mastoids normal. No enhancing lesions. No abnormal enhancement post contrast. DIFFUSION IMAGING: Negative for acute or subacute infarction. ORBITS: No masses. Globes normal. PARANASAL SINUSES: Polypoid mucosal thickening within the right maxillary sinus and fluid and mucosal thickening within the sphenoid sinuses, stable. Stable bilateral mastoid effusions. Remaining sinu ses are clear. OTHER: No other significant finding. IMPRESSION: 1. Stable scattered small areas of enhancement within the left cerebellar and bilateral cerebral hemispheres at site of previously seen lesions as detailed above. No new evidence of intra cranial metastatic disease. 2. Stable chronic sinus disease and bilateral mastoid effusions. EVIDENCE OF ACUTE STROKE: NO. TECHNICAL DOCUMENTATION: JOB ID: [id number] 2010 [employer]- All Rights Reserved Reading location - IP/workstation name: [email or web address]
== END ==
LOC: RAD 18:12
PROVIDERS: ATTEND Nurse Practitioner Family
DX: C50.919 Malignant neoplasm of unspecified site of unspecified female breast (principal)
CPT/HCPCS: 70553; A9576

== ENCOUNTER 2019-09-12 10:50 | Outpatient (CLI) | payer MEDICAID ==
[~2019-09-12 10:50] MED LIST changes: -NORMAL SALINE 250 ML @ KVO IV PRN; +NORMAL SALINE 250 ML IV PRN; +PERTUZUMAB 420 MG in NORMAL SALINE 250 ML IV PRN; +TRASTUZUMAB IV PRN; -ZOLEDRONIC ACID 4 MG/100 ML RTU IV PRN
[2019-09-12 12:23] VITALS: BP 110/74
== END 2019-09-12 14:20 | disposition home or self-care (01) ==
LOC: II 10:50 → 5TH 10:52 → II 14:20
PROVIDERS: ATTEND Internal Medicine
DX: Z51.11 Encounter for antineoplastic chemotherapy (principal); C50.919 Malignant neoplasm of unspecified site of unspecified female breast; C79.51 Secondary malignant neoplasm of bone
CPT/HCPCS: 96411; 96413; 96417; J9390; J7050; J9306; J9355; J1642

== ENCOUNTER 2019-09-19 11:24 | Outpatient (CLI) | payer MEDICAID ==
[~2019-09-19 11:24] MED LIST changes: -PERTUZUMAB 420 MG in NORMAL SALINE 250 ML IV PRN; -TRASTUZUMAB IV PRN
[2019-09-19 11:38] VITALS: BP 123/83
== END 2019-09-19 12:29 | disposition home or self-care (01) ==
LOC: II 11:24 → 5TH 11:25 → II 12:29
PROVIDERS: ATTEND Internal Medicine
DX: Z51.11 Encounter for antineoplastic chemotherapy (principal); C50.919 Malignant neoplasm of unspecified site of unspecified female breast; C79.51 Secondary malignant neoplasm of bone
CPT/HCPCS: 96409; J9390; J1642

== ENCOUNTER 2019-09-26 10:35 | Outpatient (CLI) | payer MEDICAID ==
[2019-09-26 10:54] VITALS: BP 109/70
== END 2019-09-26 11:30 | disposition home or self-care (01) ==
LOC: II 10:35 → 5TH 10:37 → II 11:30
PROVIDERS: ATTEND Internal Medicine Hematology & Oncology
DX: Z51.11 Encounter for antineoplastic chemotherapy (principal); C50.919 Malignant neoplasm of unspecified site of unspecified female breast
CPT/HCPCS: 96409; J9390; J1642

== ENCOUNTER 2019-10-10 09:25 | Outpatient (CLI) | payer MEDICAID ==
[~2019-10-10 09:25] MED LIST changes: +NORMAL SALINE 250 ML @ KVO IV PRN; -NORMAL SALINE 250 ML IV PRN; +PERTUZUMAB 420 MG in NORMAL SALINE 250 ML IV PRN; +TRASTUZUMAB IV PRN; +ZOLEDRONIC ACID 4 MG/100 ML RTU IV PRN
[2019-10-10 09:46] VITALS: BP 109/67
== END 2019-10-10 12:15 | disposition home or self-care (01) ==
LOC: II 09:25 → 5TH 09:28 → II 12:15
PROVIDERS: ATTEND Internal Medicine
DX: Z51.11 Encounter for antineoplastic chemotherapy (principal); C50.919 Malignant neoplasm of unspecified site of unspecified female breast; C79.51 Secondary malignant neoplasm of bone; D70.9 Neutropenia, unspecified
CPT/HCPCS: 96411; 96413; 96367; 96417; J9390; J7050; J3489; J9306; J9355; J1642

== ENCOUNTER 2019-10-17 11:43 | Outpatient (CLI) | payer MEDICAID ==
[~2019-10-17 11:43] MED LIST changes: -PERTUZUMAB 420 MG in NORMAL SALINE 250 ML IV PRN; -TRASTUZUMAB IV PRN; -ZOLEDRONIC ACID 4 MG/100 ML RTU IV PRN
[2019-10-17 11:59] VITALS: BP 115/69
== END 2019-10-17 13:02 | disposition home or self-care (01) ==
LOC: II 11:43 → 5TH 11:44 → II 13:02
PROVIDERS: ATTEND Internal Medicine
DX: Z51.11 Encounter for antineoplastic chemotherapy (principal); C50.919 Malignant neoplasm of unspecified site of unspecified female breast; C79.51 Secondary malignant neoplasm of bone
CPT/HCPCS: 96409; J9390; J1642

== ENCOUNTER → 2019-10-18 | Outpatient (CLI) | payer MEDICAID ==
--- NOTE | 2019-10-18 12:54 | RADIOLOGY REPORT (SQ) ---
EXAM DESCRIPTION: CT CHEST WITH IMAGES COMPLETED DATE/TIME: 10/18/2019 9:15 am REASON FOR STUDY: C50.919 MALIGNANT NEOPLASM OF UNSP SITE OF UNSPECIFIED FEMALE BREAST C50.919 CHARISSA GNANT NEOPLASM OF UNSP SITE OF UNSPECIFIED FEMAL Z51.11 ENCOUNTER FOR ANTINEOPLASTIC CHEMOTHERAPY C7 9.31 SECONDARY MALIGNANT NEOPLASM OF BRAIN COMPARISON: 05/24/2019 TECHNIQUE: CT scan of the chest performed using helical scanning technique with dynamic intravenous contrast injection. Images reviewed with lung, soft tissue and bone windows. Reconstructed coronal and sagittal MPR and MIP images reviewed. All images stored on PACS. All CT scanners at this facility use dose modulation, iterative reconstruction, and/or weight based d osing when appropriate to reduce radiation dose to as low as reasonably achievable (ALARA). [facility]: Dose Right [facility]: CareDose [facility]: Dose Right [facility]: Teradose 4D [facility]: [employer] CONTRAST TYPE AND DOSE: 94 mL Omnipaque 350- low osmolar. RENAL FUNCTION: Creatinine 0.5 RADIATION DOSE: CT Rad equipment meets quality standard of care and radiation dose reduction technGenemation ues were employed. CTDIvol: 7.1 - 8.1 mGy. DLP: 1173 mGy-cm. . LIMITATIONS: None. FINDINGS: LUNGS AND PLEURA: Small subpleural nodule in the right apex is unchanged. There is a 6.6 x 4.2 mm nodule anteriorly in the on the right on image 64 series 6. This is slightly larger in both dimensions. There are no new pulmonary nodules. HILAR AND MEDIASTINAL STRUCTURES: Calcified mediastinal and hilar nodes are present. The show no sulaiman nge. HEART AND VASCULAR STRUCTURES: No aneurysm or dissection. No central pulmonary emboli. No pericardi al effusion. HARDWARE: None in the chest. UPPER ABDOMEN: No significant findings. Limited exam. THYROID AND OTHER SOFT TISSUES: No masses. No adenopathy. BONES: No significant finding. OTHER: No other significant finding. IMPRESSION: There is stable pleural/ parenchymal scarring in the right apex. There is a small nodul e in the right lung anteriorly on image 64 that is minimally larger than on the prior study. No new pulmonary nodules are present. There are stable calcified mediastinal and hilar nodes. TECHNICAL DOCUMENTATION: JOB ID: [id number] Quality ID # 436: Final reports with documentation of one or more dose reduction techniques (e.g., Au tomated exposure control, adjustment of the mA and/or kV according to patient size, use of iterative reconstruction technique) 2010 [employer]- All Rights Reserved Reading location - IP/workstation name: [email or web address]
--- NOTE | 2019-10-18 13:06 | RADIOLOGY REPORT (SQ) ---
EXAM DESCRIPTION: CT ABD/PELVIS WITH IV ONLY IMAGES COMPLETED DATE/TIME: 10/18/2019 9:15 am REASON FOR STUDY: C50.919 MALIGNANT NEOPLASM OF UNSP SITE OF UNSPECIFIED FEMALE BREAST C50.919 CHARISSA GNANT NEOPLASM OF UNSP SITE OF UNSPECIFIED FEMAL Z51.11 ENCOUNTER FOR ANTINEOPLASTIC CHEMOTHERAPY C7 9.31 SECONDARY MALIGNANT NEOPLASM OF BRAIN COMPARISON: 05/24/2019 TECHNIQUE: CT scan of the abdomen and pelvis performed using helical scanning technique with dynamic intravenous contrast injection. No oral contrast. Images reviewed with lung, soft tissue, and bone windows. Reconstructed coronal and sagittal MPR images reviewed. Delayed images for evaluation of the urinary system also acquired. All images stored on PACS. All CT scanners at this facility use dose modulation, iterative reconstruction, and/or weight based d osing when appropriate to reduce radiation dose to as low as reasonably achievable (ALARA). [facility]: Dose Right [facility]: CareDose [facility]: Dose Right [facility]: Teradose 4D [facility]: [employer] CONTRAST TYPE AND DOSE: contrast/concentration: Isovue 350.00 mmol/ml; Total Contrast Delivered: 94. 0 ml; Total Saline Delivered: 70.0 ml RENAL FUNCTION: Creatinine 0.5 RADIATION DOSE: . LIMITATIONS: None. FINDINGS: LOWER CHEST: See separate report of the CT of the chest. LIVER: Normal size. No masses. No dilated ducts. SPLEEN: Normal size. No focal lesions. PANCREAS: No masses. No significant calcifications. No adjacent inflammation or peripancreatic fluid collections. Pancreatic duct not dilated. GALLBLADDER: No identified stones by CT criteria. No inflammatory changes to suggest cholecystitis. ADRENAL GLANDS: No significant masses or asymmetry. RIGHT KIDNEY AND URETER: No solid masses. No significant calcifications. No hydronephrosis or hyd roureter. LEFT KIDNEY AND URETER: No solid masses. No significant calcifications. No hydronephrosis or hydr oureter. AORTA AND VESSELS: No aneurysm. No dissection. Renal arteries, SMA, celiac without stenosis. RETROPERITONEUM: No retroperitoneal adenopathy, hemorrhage or masses. BOWEL AND PERITONEAL CAVITY: No masses or inflammatory changes. No free fluid or peritoneal masses. APPENDIX: Normal. PELVIS: No mass. No free fluid. Normal bladder. ABDOMINAL WALL: No masses. No hernias. BONES: There is a tiny sclerotic lesion in the posterior aspect of the L4 vertebra that is stable. T here is a stable sclerotic lesion in the left sacral ala. OTHER: No other significant finding. IMPRESSION: Stable osseous findings as described. There is no evidence of metastatic disease within the abdomen or pelvis. TECHNICAL DOCUMENTATION: JOB ID: [id number] Quality ID # 436: Final reports with documentation of one or more dose reduction techniques (e.g., Au tomated exposure control, adjustment of the mA and/or kV according to patient size, use of iterative reconstruction technique) 2010 [employer]- All Rights Reserved Reading location - IP/workstation name: [email or web address]
--- NOTE | 2019-10-18 14:17 | RADIOLOGY REPORT (SQ) ---
EXAM DESCRIPTION: NM WHOLE BODY BONE SCAN IMAGES COMPLETED DATE/TIME: 10/18/2019 1:18 pm REASON FOR STUDY: C50.919 MALIGNANT NEOPLASM OF UNSP SITE OF UNSPECIFIED FEMALE BREAST C50.919 CHARISSA GNANT NEOPLASM OF UNSP SITE OF UNSPECIFIED FEMAL Z51.11 ENCOUNTER FOR ANTINEOPLASTIC CHEMOTHERAPY C7 9.31 SECONDARY MALIGNANT NEOPLASM OF BRAIN COMPARISON: 02/21/2018 RADIONUCLIDE AND DOSE: 20 millicuries Tc99m MDP. The route of agent administration: Intravenous. ADDITIONAL DRUGS AND DOSES: None. TECHNIQUE: Routine delayed images at 3 hours post radionuclide injection acquired of the bony skelet on including anterior and posterior whole-body projections and additional focused images as needed. LIMITATIONS: None. FINDINGS: BONES: Normal visualization without areas of photopenia or increased bony uptake of radiop harmaceutical. KIDNEYS: Symmetric excretion without obstruction. OTHER: No other significant finding. IMPRESSION: NORMAL BONE SCAN. COMMENT: Quality measure 147: Current bone scan is compared with any available plain radiographs, p rior bone scans, and CT/MRI. TECHNICAL DOCUMENTATION: JOB ID: [id number] 2010 [employer]- All Rights Reserved Reading location - IP/workstation name: [email or web address]
== END ==
LOC: RAD 08:55
PROVIDERS: ATTEND Internal Medicine Hematology & Oncology
DX: Z51.11 Encounter for antineoplastic chemotherapy (principal); C50.919 Malignant neoplasm of unspecified site of unspecified female breast; C79.31 Secondary malignant neoplasm of brain
CPT/HCPCS: 82565; 78306; 71260; 74177; A9503; Q9969

== ENCOUNTER 2019-10-24 12:02 | Outpatient (CLI) | payer MEDICAID ==
[~2019-10-24 12:02] MED LIST changes: -NORMAL SALINE 250 ML @ KVO IV PRN; +NORMAL SALINE 250 ML IV PRN
[2019-10-24 12:48] VITALS: BP 112/71
== END 2019-10-24 13:15 | disposition home or self-care (01) ==
LOC: II 12:02 → 5TH 12:03 → II 13:15
PROVIDERS: ATTEND Internal Medicine
DX: Z51.11 Encounter for antineoplastic chemotherapy (principal); C50.919 Malignant neoplasm of unspecified site of unspecified female breast; C79.51 Secondary malignant neoplasm of bone
CPT/HCPCS: 96409; J9390; J1642; 96413

== ENCOUNTER → 2019-10-27 | Outpatient (CLI) | payer MEDICAID ==
--- NOTE | 2019-10-27 12:52 | RADIOLOGY REPORT (SQ) ---
EXAM DESCRIPTION: NM MUGA REST IMAGES COMPLETED DATE/TIME: 10/27/2019 12:21 pm REASON FOR STUDY: Z08 ENCNTR FOR FOLLOW-UP EXAM AFTER TRTMT FOR MALIGNANT NEOPLASM Z08 ENCNTR FOR F OLLOW-UP EXAM AFTER TRTMT FOR MALIGNANT NEOP COMPARISON: 06/29/2019 RADIONUCLIDE AND DOSE: 25 mCi technetium 99m labeled red blood cells The route of agent administration: Intravenous TECHNIQUE: Following administration of the radionuclide, gated images of the heart are obtained in t hree projections. Left ventricular functional analysis performed. LIMITATIONS: None. FINDINGS: LEFT VENTRICULAR FUNCTION: EJECTION FRACTION: 70%. END-DIASTOLIC VOLUME: 92 mL. END-SYSTOLIC VOLUME: 26 mL. WALL MOTION: No focal wall motion abnormalities. OTHER: No other significant finding. IMPRESSION: NORMAL CARDIAC MUGA STUDY. NORMAL LEFT VENTRICULAR FUNCTION WITH VALUES ABOVE. TECHNICAL DOCUMENTATION: JOB ID: [id number] 2010 [employer]- All Rights Reserved Reading location - IP/workstation name: [email or web address]
== END ==
LOC: RAD 11:01
PROVIDERS: ATTEND Internal Medicine Hematology & Oncology
DX: Z08 Encounter for follow-up examination after completed treatment for malignant neoplasm (principal); Z51.81 Encounter for therapeutic drug level monitoring; Z79.899 Other long term (current) drug therapy
CPT/HCPCS: 78472; A9560; Q9969

== ENCOUNTER 2019-10-31 09:32 | Outpatient (CLI) | payer MEDICAID ==
[~2019-10-31 09:32] MED LIST changes: +PERTUZUMAB 420 MG in NORMAL SALINE 250 ML IV PRN; +TRASTUZUMAB IV PRN
[2019-10-31 09:46] VITALS: BP 102/52
== END 2019-10-31 12:23 | disposition home or self-care (01) ==
LOC: II 09:32 → 5TH 09:34 → II 12:23
PROVIDERS: ATTEND Internal Medicine
DX: Z51.11 Encounter for antineoplastic chemotherapy (principal); C50.919 Malignant neoplasm of unspecified site of unspecified female breast; C79.51 Secondary malignant neoplasm of bone
CPT/HCPCS: 96411; 96413; 96417; J9390; J7050; J9306; J9355; J1642

== ENCOUNTER 2019-11-07 12:14 | Outpatient (CLI) | payer MEDICAID ==
[~2019-11-07 12:14] MED LIST changes: -PERTUZUMAB 420 MG in NORMAL SALINE 250 ML IV PRN; -TRASTUZUMAB IV PRN; +ZOLEDRONIC ACID 4 MG/100 ML RTU IV PRN
[2019-11-07 12:30] VITALS: BP 115/64
== END 2019-11-07 13:20 | disposition home or self-care (01) ==
LOC: II 12:14 → 5TH 12:16 → II 13:20
PROVIDERS: ATTEND Internal Medicine
DX: Z51.11 Encounter for antineoplastic chemotherapy (principal); C50.919 Malignant neoplasm of unspecified site of unspecified female breast
CPT/HCPCS: 96409; 96375; J9390; J3489; J1642

== ENCOUNTER 2019-11-21 09:32 | Outpatient (CLI) | payer MEDICAID ==
[~2019-11-21 09:32] MED LIST changes: +PERTUZUMAB 420 MG in NORMAL SALINE 250 ML IV PRN; +TRASTUZUMAB IV PRN; -ZOLEDRONIC ACID 4 MG/100 ML RTU IV PRN
[2019-11-21 10:04] VITALS: BP 105/82
== END 2019-11-21 12:45 | disposition home or self-care (01) ==
LOC: II 09:32 → 5TH 09:40 → II 12:45
PROVIDERS: ATTEND Internal Medicine
DX: Z51.11 Encounter for antineoplastic chemotherapy (principal); C50.919 Malignant neoplasm of unspecified site of unspecified female breast
CPT/HCPCS: 96411; 96413; 96417; J9390; J7050; J9306; J9355; J1642

== ENCOUNTER → 2019-11-22 | Outpatient (CLI) | payer MEDICAID ==
--- NOTE | 2019-11-22 17:44 | RADIOLOGY REPORT (SQ) ---
EXAM DESCRIPTION: MRI HEAD COMBO IMAGES COMPLETED DATE/TIME: 11/22/2019 3:30 pm REASON FOR STUDY: (C79.31)SECONDARY MALIGNANT NEOPLASM OF BRAIN C79.31 SECONDARY MALIGNANT NEOPLASM OF BRAIN. Intracranial metastases. Headache. Chemotherapy and radiation. COMPARISON: MRI brain, 09/05/2019. MRI brain, 06/01/2019. TECHNIQUE: Multiplanar imaging includes noncontrasted T1, T2, FLAIR, diffusion with ADC map and post gadolinium contrast T1 sequences. Images stored on PACS. CONTRAST TYPE AND DOSE: 15 mL ProHance RENAL FUNCTION: Not indicated. ACR Type II contrast agent associated with few, if any, unconfounded cases of NSF LIMITATIONS: None. FINDINGS: ANATOMY: No anomalies. Normal vascular flow voids. Pituitary fossa normal. CSF SPACES: Normal in size and contour. No hemorrhage. CEREBRUM: Interval increase in size of multiple intracranial metastases, with mild associated edema. No significant mass effect or evidence of herniation. Increased size 9 mm subcortical metastasis in the left parietal lobe (image 163 series 13), previously 5 mm. Stable 3 mm metastasis high left par ietal lobe (image 196 of series 13). Sulci and gyri normal in size and contour. There is mild patch y periventricular and deep white matter hyperintense T2 signal consistent with mild chronic small ves regina ischemic change. Associated mild hyperintense T2 signal corresponding to the metastatic lesions. No evidence of hemorrhage or extraaxial fluid collection. POSTERIOR FOSSA: There is a new 2 mm metastatic deposit in the left cerebellar hemisphere (image 45 of series 13). Increased size of a previously described metastasis in the left cerebellar hemisphere now measuring 6 x 3 mm, previously 4 x 2 mm (image 55, series 13). This has increasing surrounding vasogenic edema with minimal mass effect. Stable 3 mm metastasis adjacent to this in the left cerebe llar hemisphere. Stable 4 mm metastasis in the right cerebellar hemisphere (image 71 series 13). Ne w punctate metastasis at the right superior cerebellar hemisphere (image 90 series 13). No hemorrhage . No edema, masses, or mass effect. Internal auditory canals, cerebellopontine angles are normal. DIFFUSION IMAGING: Negative for acute or subacute infarction. ORBITS: No masses. Globes normal. PARANASAL SINUSES: Re- demonstrated extensive fluid/ proteinaceous debris in the sphenoid sinuses. P olypoid mucosal thickening right maxillary sinus also unchanged. Chronic fluid mastoid air cells, st able from prior. OTHER: No other significant finding. IMPRESSION: 1. Since the previous examination performed 09/05/2019, there is been interval increase in size and nu mber of intracranial metastases as described. 2. No evidence of acute ischemia or intracranial hemorrhage. 3. Chronic sinusitis and chronic mastoid effusions. EVIDENCE OF ACUTE STROKE: NO. TECHNICAL DOCUMENTATION: JOB ID: [id number] 2010 [employer]- All Rights Reserved Reading location - IP/workstation name: [email or web address]
== END ==
LOC: RAD 15:30
PROVIDERS: ATTEND Nurse Practitioner Family
DX: C79.31 Secondary malignant neoplasm of brain (principal); R51.9 Headache, unspecified; J32.4 Chronic pansinusitis
CPT/HCPCS: 70553; A9576

== ENCOUNTER 2019-11-28 10:43 | Outpatient (CLI) | payer MEDICAID ==
[~2019-11-28 10:43] MED LIST changes: -PERTUZUMAB 420 MG in NORMAL SALINE 250 ML IV PRN; -TRASTUZUMAB IV PRN
[2019-11-28 11:05] VITALS: BP 120/68
== END 2019-11-28 11:45 | disposition home or self-care (01) ==
LOC: II 10:43 → 5TH 10:48 → II 11:45
PROVIDERS: ATTEND Internal Medicine
DX: Z51.11 Encounter for antineoplastic chemotherapy (principal); C50.919 Malignant neoplasm of unspecified site of unspecified female breast
CPT/HCPCS: 96409; J9390; J1642

== ENCOUNTER 2019-12-12 10:23 | Outpatient (CLI) | payer MEDICAID ==
[~2019-12-12 10:23] MED LIST changes: +ZOLEDRONIC ACID/MANNITOL/WATER 4 MG/100 ML INFUS..BTL IV PRN
[2019-12-12 11:06] VITALS: BP 114/75
== END 2019-12-12 11:28 | disposition home or self-care (01) ==
LOC: II 10:23 → 5TH 10:25 → II 11:28
PROVIDERS: ATTEND Internal Medicine
DX: Z51.11 Encounter for antineoplastic chemotherapy (principal); C50.919 Malignant neoplasm of unspecified site of unspecified female breast
CPT/HCPCS: 96409; 96367; J9390; J3489; J1642

== ENCOUNTER 2019-12-26 10:41 | Outpatient (CLI) | payer MEDICAID ==
[~2019-12-26 10:41] MED LIST changes: +ADO TRASTUZUMAB EMTANSINE IV PRN; -ZOLEDRONIC ACID/MANNITOL/WATER 4 MG/100 ML INFUS..BTL IV PRN
[2019-12-26 11:09] VITALS: BP 109/72
[2019-12-26] MEDS ORDERED: ONDANSETRON HCL/PF 8 MG in NORMAL SALINE 50 ML IV PRN (11:12)
== END 2019-12-26 16:07 | disposition home or self-care (01) ==
LOC: II 10:41 → 5TH 10:44 → II 16:07
PROVIDERS: ATTEND Internal Medicine
DX: Z51.11 Encounter for antineoplastic chemotherapy (principal); C50.919 Malignant neoplasm of unspecified site of unspecified female breast
CPT/HCPCS: 96411; 96413; 96367; J9390; J2405; J7050; J1642; J9354

== ENCOUNTER 2020-01-02 10:36 | Outpatient (CLI) | payer MEDICAID ==
[~2020-01-02 10:36] MED LIST changes: -ADO TRASTUZUMAB EMTANSINE IV PRN; +NORMAL SALINE 250 ML @ KVO IV PRN; -NORMAL SALINE 250 ML IV PRN
[2020-01-02 12:04] VITALS: BP 129/72
== END 2020-01-02 12:15 | disposition home or self-care (01) ==
LOC: II 10:36 → 5TH 10:37 → II 12:15
PROVIDERS: ATTEND Internal Medicine
DX: Z51.11 Encounter for antineoplastic chemotherapy (principal); C50.919 Malignant neoplasm of unspecified site of unspecified female breast
CPT/HCPCS: 96409; J9390; J1642

== ENCOUNTER 2020-01-09 11:08 | Outpatient (CLI) | payer MEDICAID ==
[~2020-01-09 11:08] MED LIST changes: -NORMAL SALINE 250 ML @ KVO IV PRN; +NORMAL SALINE 250 ML IV PRN; +ZOLEDRONIC ACID 4 MG/100 ML RTU IV PRN
[2020-01-09 12:21] VITALS: BP 111/73
== END 2020-01-09 13:45 | disposition home or self-care (01) ==
LOC: II 11:08 → 5TH 11:09 → II 13:45
PROVIDERS: ATTEND Internal Medicine Hematology & Oncology
DX: Z51.11 Encounter for antineoplastic chemotherapy (principal); C50.919 Malignant neoplasm of unspecified site of unspecified female breast
CPT/HCPCS: 96409; 96367; J9390; J3489; J1642

== ENCOUNTER 2020-01-16 10:15 | Outpatient (CLI) | payer MEDICAID ==
[~2020-01-16 10:15] MED LIST changes: +ADO TRASTUZUMAB EMTANSINE IV PRN; +ONDANSETRON HCL/PF 8 MG in NORMAL SALINE 50 ML IV PRN; -ZOLEDRONIC ACID 4 MG/100 ML RTU IV PRN
[2020-01-16 11:23] VITALS: BP 121/68
== END 2020-01-16 13:45 | disposition home or self-care (01) ==
LOC: II 10:15 → 5TH 10:16 → II 13:45
PROVIDERS: ATTEND Internal Medicine
DX: Z51.11 Encounter for antineoplastic chemotherapy (principal); C50.919 Malignant neoplasm of unspecified site of unspecified female breast
CPT/HCPCS: 96411; 96413; 96367; J9390; J2405; J7050; J1642; J9354

== ENCOUNTER 2020-01-23 11:40 | Outpatient (CLI) | payer MEDICAID ==
[~2020-01-23 11:40] MED LIST changes: -ADO TRASTUZUMAB EMTANSINE IV PRN; -ONDANSETRON HCL/PF 8 MG in NORMAL SALINE 50 ML IV PRN
[2020-01-23 11:49] VITALS: BP 108/78
[2020-01-23] MEDS ORDERED: VINORELBINE TARTRATE IV PRN (11:57)
[2020-01-23] MEDS ORDERED: NORMAL SALINE IV PRN (11:57)
== END 2020-01-23 13:05 | disposition home or self-care (01) ==
LOC: II 11:40 → 5TH 11:42 → II 13:05
PROVIDERS: ATTEND Internal Medicine Hematology & Oncology
DX: Z51.11 Encounter for antineoplastic chemotherapy (principal); C50.919 Malignant neoplasm of unspecified site of unspecified female breast
CPT/HCPCS: 96409; J9390; J1642

== ENCOUNTER 2020-01-30 11:21 | Outpatient (CLI) | payer MEDICAID ==
[2020-01-30 11:38] VITALS: BP 106/76
== END 2020-01-30 12:30 | disposition home or self-care (01) ==
LOC: II 11:21 → 5TH 11:23 → II 12:30
PROVIDERS: ATTEND Internal Medicine Hematology & Oncology
DX: Z51.11 Encounter for antineoplastic chemotherapy (principal); C50.919 Malignant neoplasm of unspecified site of unspecified female breast
CPT/HCPCS: 96409; J9390; J1642

== ENCOUNTER 2020-02-06 11:11 | Outpatient (CLI) | payer MEDICAID ==
[~2020-02-06 11:11] MED LIST changes: +ADO TRASTUZUMAB EMTANSINE IV PRN; +NORMAL SALINE 250 ML @ KVO IV PRN; -NORMAL SALINE 250 ML IV PRN; +ONDANSETRON HCL/PF 8 MG in NORMAL SALINE 50 ML IV PRN; +ZOLEDRONIC ACID/MANNITOL/WATER 4 MG/100 ML INFUS..BTL IV PRN
[2020-02-06 11:30] VITALS: BP 105/79
== END 2020-02-06 13:40 | disposition home or self-care (01) ==
LOC: II 11:11 → 5TH 11:31 → II 13:40
PROVIDERS: ATTEND Internal Medicine Hematology & Oncology
DX: Z51.11 Encounter for antineoplastic chemotherapy (principal); C50.919 Malignant neoplasm of unspecified site of unspecified female breast
CPT/HCPCS: 96411; 96413; 96367; J9390; J2405; J7050; J3489; J1642; J9354

== ENCOUNTER 2020-02-20 11:29 | Outpatient (CLI) | payer MEDICAID ==
[~2020-02-20 11:29] MED LIST changes: -ADO TRASTUZUMAB EMTANSINE IV PRN; +NORMAL SALINE 250 ML IV PRN; -ONDANSETRON HCL/PF 8 MG in NORMAL SALINE 50 ML IV PRN; -ZOLEDRONIC ACID/MANNITOL/WATER 4 MG/100 ML INFUS..BTL IV PRN
[2020-02-20] MEDS ORDERED: ONDANSETRON HCL INJ/PF 4 MG/2 ML SDV IV PRN (11:45)
[2020-02-20 11:49] VITALS: BP 110/76
== END 2020-02-20 12:47 | disposition home or self-care (01) ==
LOC: II 11:29 → 5TH 11:32 → II 12:47
PROVIDERS: ATTEND Internal Medicine Hematology & Oncology
DX: Z51.11 Encounter for antineoplastic chemotherapy (principal); C50.919 Malignant neoplasm of unspecified site of unspecified female breast
CPT/HCPCS: 96409; 96375; J9390; J2405; J1642

== ENCOUNTER 2020-02-27 11:07 | Outpatient (CLI) | payer MEDICAID ==
[~2020-02-27 11:07] MED LIST changes: +ADO TRASTUZUMAB EMTANSINE IV PRN; -NORMAL SALINE 250 ML @ KVO IV PRN; +ONDANSETRON HCL INJ/PF 4 MG/2 ML SDV IV PRN
[2020-02-27 11:33] VITALS: BP 99/70
[2020-02-27] MEDS ORDERED: NORMAL SALINE IV PRN (13:55)
[2020-02-27] MEDS ORDERED: ADO TRASTUZUMAB EMTANSINE IV PRN (13:55)
[2020-02-27] MEDS ORDERED: NORMAL SALINE 250 ML IV PRN (13:56)
== END 2020-02-27 13:31 | disposition home or self-care (01) ==
LOC: II 11:07 → 5TH 11:13 → II 13:31
PROVIDERS: ATTEND Internal Medicine Hematology & Oncology
DX: Z51.11 Encounter for antineoplastic chemotherapy (principal); C50.919 Malignant neoplasm of unspecified site of unspecified female breast; C79.51 Secondary malignant neoplasm of bone
CPT/HCPCS: 96411; 96413; 96375; J9390; J2405; J7050; J1642; J9354; 96367

== ENCOUNTER → 2020-02-29 | Outpatient (CLI) | payer MEDICAID ==
--- NOTE | 2020-02-29 15:47 | RADIOLOGY REPORT (SQ) ---
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 Images reviewed with lung, soft tissue and bone windows. Reconstructed coronal a nd sagittal MPR images reviewed. All images stored on PACS. CT scan of the abdomen and pelvis performed with intravenous and with oral contrastusing helical scan magda technique with dynamic intravenous contrast injection. Images reviewed with lung, soft tissue a nd bone windows. Reconstructed coronal and sagittal MPR images reviewed. Delayed images for evaluat ion of the urinary system also acquired and evaluated. All images stored on PACS. All CT scanners at this facility use dose modulation, iterative reconstruction, and/or weight based d osing when appropriate to reduce radiation dose to as low as reasonably achievable (ALARA). [facility]: Dose Right [facility]: CareDose [facility]: Dose Right [facility]: Teradose 4D [facility]: [employer] RADIATION DOSE: CT Rad equipment meets quality standard of care and radiation dose reduction techniq ues were employed. CTDIvol: 6.6 - 8.6 mGy. DLP: 1162 mGy-cm. . LIMITATIONS: None. FINDINGS: CHEST: LUNGS AND PLEURA: A 6 x 4 x 3 mm perifissural lymph node within the right upper lobe is unchanged (ax ial image 59/137). Stable right apical pleural/ parenchymal scarring. No new or suspicious nodule/ masses. No focal consolidation. No pleural effusion. No pneumothorax. HILAR AND MEDIASTINAL STRUCTURES: Re- demonstration of partially calcified by hilar and mediastinal l ymph nodes. HEART AND VASCULAR STRUCTURES: No aneurysm or dissection. Trace pericardial fluid. No significant c oronary artery calcifications. HARDWARE: Left breast implant appears to be intact. THYROID AND OTHER SOFT TISSUES: No masses. No adenopathy. BONES: No significant finding. OTHER: No other significant finding. ABDOMEN AND PELVIS: LIVER: Normal size. No masses. No dilated ducts. SPLEEN: Normal size. No focal lesions. PANCREAS: No masses. No significant calcifications. No adjacent inflammation or peripancreatic fluid collections. Pancreatic duct not dilated. GALLBLADDER: No identified stones by CT criteria. No inflammatory changes to suggest cholecystitis. ADRENAL GLANDS: No significant masses or asymmetry. RIGHT KIDNEY AND URETER: No solid masses. No significant calcification. No hydronephrosis or hydroure ter. LEFT KIDNEY AND URETER: No solid masses. No significant calcification. No hydronephrosis or hydrouret er. AORTA AND VESSELS: No aneurysm. No dissection. Renal arteries, SMA, celiac without stenosis. RETROPERITONEUM: No retroperitoneal adenopathy, hemorrhage or masses. BOWEL AND PERITONEAL CAVITY: No masses or inflammatory changes. No free fluid or peritoneal masses. APPENDIX: Normal. ABDOMINAL WALL: No masses. No hernias. PELVIS: No mass or free fluid. Normal bladder. BONES: No acute findings. Re- demonstration of nonaggressive appearing sclerotic focus within the le ft sacral ala and L4 vertebral body there is subcortical sclerosis and cystic changes seen of the non weightbearing surface of the left femoral head is retrospectively present on comparison imaging and u nchanged in appearance. OTHER: No other significant finding. IMPRESSION: No evidence of primary or metastatic neoplasm. Stable CT appearance of the chest, abdomen, and pelvis. TECHNICAL DOCUMENTATION: JOB ID: [id number] Quality ID # [id number]: Final reports with documentation of one or more dose reduction techniques (e.g., Au tomated exposure control, adjustment of the mA and/or kV according to patient size, use of iterative reconstruction technique) 2010 [employer]- All Rights Reserved COMPARISON: 10/18/2019 CONTRAST TYPE AND DOSE: contrast/concentration: Isovue 350.00 mmol/ml; Total Contrast Delivered: 80. 0 ml; Total Saline Delivered: 40.0 ml Reading location - IP/workstation name: [email or web address]
== END ==
LOC: RAD 14:54
PROVIDERS: ATTEND Nurse Practitioner Family
DX: C50.412 Malignant neoplasm of upper-outer quadrant of left female breast (principal)
CPT/HCPCS: 71260; 74177; 82565

== ENCOUNTER 2020-03-05 11:12 | Outpatient (CLI) | payer MEDICAID ==
[~2020-03-05 11:12] MED LIST changes: -ADO TRASTUZUMAB EMTANSINE IV PRN; -ONDANSETRON HCL INJ/PF 4 MG/2 ML SDV IV PRN; +ZOLEDRONIC ACID 4 MG/100 ML RTU IV PRN
[2020-03-05 11:45] VITALS: BP 107/77
[2020-03-05] MEDS ORDERED: ONDANSETRON HCL/PF 8 MG in NORMAL SALINE 50 ML IV PRN ×2 (12:05→12:30)
== END 2020-03-05 15:06 | disposition home or self-care (01) ==
LOC: II 11:12 → 5TH 11:14 → II 15:06
PROVIDERS: ATTEND Internal Medicine Hematology & Oncology
DX: Z51.11 Encounter for antineoplastic chemotherapy (principal); C50.919 Malignant neoplasm of unspecified site of unspecified female breast
CPT/HCPCS: 96409; 96367; J9390; J2405; J3489; J1642; 96413